=== PATIENT | female | born 2000 | race Caucasian/White ===

== ENCOUNTER → 2024-07-02 14:38 | Outpatient (BNVA) | payer SELFPAY | PROVIDERS: Visit Provider Physician Assistant | DX: Z02.79 Encounter for issue of other medical certificate (principal) ==

== ENCOUNTER 2025-07-22 09:20 | Outpatient (REF) | payer OTHER, SELFPAY ==
--- OUTSIDE RECORDS SUMMARY | 2025-07-22 10:25 | XMS_ITS | Clinical Summary ---
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 child wets his or her bed because of a urinary tract infection, diabetes, or constipation (all medical causes of bed-wetting), those problems need to be addressed first. In addition, hypnotherapy or RMI should be used by health care provider who is properly trained in its use, treating what the doctor is trained to diagnose and treat medically. Though hypnotherapy is used to treat patients with post traumatic stress disorder, for example, pediatricians are not trained to treat this problem, and should leave this treatment and the treatment of other severe psychiatric conditions to mental health professionals. In fact, pediatricians should ask about any emotional disorder or problem at school or in the home (like depression or abuse) before beginning hypnotherapy for a condition like headaches, where stress often plays a role. What kind of training should a hypnotherapist have? A hypnotherapist should be a health care provider with additional training, including supervision, at workshops like those offered by the Society for Behavioral and Developmental Pediatrics, and, ideally certification by an organization like the [place] [employer] Hypnosis. How much time does Hypnosis take? A hypnotherapeutic cure takes anywhere from one to a half dozen sessions, which are usually about a half hour, scheduled a week to a month apart. Of course, the most important part of the hypnotherapy or RMI is the PRACTICE which the child or teen must do on his or her own, once or twice a day. This practice must continue until the program is solved but can often be then applied to other problems like preparation and psyching for a soccer, basketball or hockey game. This is one of the advantages of hypnosis: It is a lifelong skill that can enhance self confidence, independence, and ability in a wide array of activities. If you would like additional information, I can refer you to excellent text books on the subject written by John Duarte and Edita Sanders, and a licensed clinical contact worker Aimee Rodriguez, as well as several articles I have written. ............Jona Torres MD [facility] Assessment & Plan (04/15/2020 2:18 PM EDT): Still getting migraines occasionally (2 this month, none last month), using sumatriptan with relief. Have not seen neuro again, aware to call him if any concerns. Assessment & Plan (11/16/2019 11:37 AM EST): Still no auras. Has neuro visit in November. Assessment & Plan (06/08/2019 4:23 PM EDT): Had a CLAROS yesterday with vomiting, and a little CLAROS today, took NSAID. Did take sumatriptan yesterday. Resolved Problems Problem Noted Date Diagnosed Date Resolved Date Uncomplicated asthma 02/17/2010 019 Immunizations Immunization Administration Dates Next Due DTaP 5 05/15/2006, 3,2002,08/06,2002 HPV Vaccine 9 Valent 12/09/2020,09/23/2015 HPV, Quadrivalent 10/13/2014,08/10/2014 Hep A, ped/adol 09/23/2015,10/13/2014 Hep B, ped/adol 02/18/2003,2002,2002 Hib (PRP-T) 07/15/2003, 2,2002,06/04 IPV 05/15/2006, 3,2002,06/04 Influenza Split 09/30/2012,08/10/2010 Influenza, injectable, quadrivalent 09/23/2015 Influenza, injectable, quadr ivalent, preservative free 08/23/2021,09/19/2020,08/10/2014 Influenza, injectable, trivalent 09/10/2007,08/25,10/06/2004 MMR 05/15/2006,04/05/2003 Meningococcal B Trumenba 09/19/2020,04/06/2019 Meningococcal Conj (Menactra) MCV4P 04/06/2019,0 08/10/2014 PPD Test 12/27/2020 Pneumococcal Conjugate 07/15/2003,2001,2002,06/04 Tdap 08/10/2014 Varicella 05/19/2008,04/05/2003 Family History Medical History Relation Name Comments Heart disease (Premature) Maternal Grandmother strokes Hypertension Maternal Grandmother Anxiety disorder Mother Cristy Aleman Depression Mother Cristy Aleman on Celexa Scoliosis Mother Cristy Aleman Polycystic ovary syndrome Mother's Sister Anxiety disorder Sister Juliane Estrella Depression Sister Juliane Estrella on sertralin e Relation Name Status Comments Cousin Cousin: Brain t umor Father Alive pat fam h/o: AD D/ADHD Maternal Grandmother Alive Materna l aunt: Hypertension Mother Cristy Aleman Alive Mother: Migra good, Asthma Mother's Sister Alive Other No family histo ry of Deafness, No family history of Obesity, No family history of Strabismus/amblyopia, No family history of ADD/ADHD, No family history of Autism, No family history of Seizure disorder, No family history of Sudden /NH under age 55, No family history of Developmental dislocation of hip, Family history of Migraines, No family history of Diabetes mellitus, No family history of Elevated cholesterol Sister Juliane Estrella Alive Sister: Asth ma Social History Tobacco Use Types Packs/Day Years Used Date Smoking Tobacco: Never Smokeless Tobacco: Never Tobacco Cessation:Counseling Given: Yes Comments:Never smoker Alcohol Use Standard Drinks/Week Comments Never 0 (1 standard drink = 0.6 oz pur e alcohol) Hunger/Food Answer Date Recorded In the last 12 months, did y ou or your family ever eat less than you felt you should because there wasn't enough money for food? No 06/27/2022 Stable Housing Answer Date Recorded Are you worried that in the next 2 months you may not have stable housing? No 06/27/2022 Transportation Concerns Answer Date Rec orded In the last 12 months, have you or your family ever had to go without healthcare because you didn't have a way to get there? No 06/27/2022 Hazards in Home Answer Date Recorded Think about the place you li ve. Do you have problems with any of the following? Pests (mice or roaches), mold, no/not working smoke detectors, water leaks, no window guards. No 2021 Financing Utilities Answer Date Recorde d In the last 12 months, has t he electric, gas, oil, or water company threatened to shut off your services in your home? No 06/27/2022 Safety at Home Answer Date Recorded Are you or your family worried about feeling saf e in your home? No 06/27/2022 Outside Support Answer Date Recorded Do you feel that you need mo re support from other people or programs to help you care for yourself or your family? No 06/27/2022 Understanding Health Concerns Answer Da te Recorded Do you need help understandi ng your or your child's healthcare needs (diagnosis, medications, plan, etc.)? No 06/27/2022 Financing Health Concerns Answer Date R ecorded In the last 12 months, was t here a time when your child needed to see a doctor or get medications or supplies but could not because of cost? No 06/27/2022 Missing School or Work Answer Date Anastacio rded Did you or your child miss s chool or work because of a health problem that could have been avoided? No 06/27/2022 Comments No Sex and Gender Information Value Date Recorded Sex Assigned at Female 04/15/2020 2:15 PM EDT Legal Sex Female 5:02 PM EDT Gender Identity Female 04/15/2020 2:15 PM EDT Sexual Orientation Straight 04/15/2020 2: 15 PM EDT Last Filed Vital Signs Vital Sign Reading Time Taken Comments Blood Pressure 132/95 08/06/2022 11:40 AM EDT Pulse 73 08/06/2022 11:40 AM EDT Temperature 36.9 C (98.5 F) 08/06/2022 11:40 AM EDT Respiratory Rate - - Oxygen Saturation - - Inhaled Oxygen Concentration - - Weight 117 kg (257 lb 3.2 oz) 08/06/2022 11:40 A M EDT Height 151.8 cm (4' 11.75 ) 06/28/2022 10:51 AM EDT Body Mass Index 50.65 06/28/2022 10:51 AM EDT Plan of Treatment Health Maintenance Due Date Last Done Comments COVID-19 Vaccine (2023-2 5 season) 2024 02/12/2022, 05/18/2021, 04/20/2021 Influenza Vaccines (#1) 2025 08/23/20, 09/19/2020, 09/23/2015, Additional history exists DTaP,Tdap,and Td Vaccines (8 - Td or Tdap) 05/01/2033 05/01/2023, 08/10/2014, 05/15/2006, Additional history exists Hepatitis B Vaccines Completed 02/18/2003, 2002, 2002 HIB Vaccines Completed 07/15/2003, 09/25, 2002, Additional history exists Pneumococcal Vaccine Completed 07/15/2003, 2002, 2002, Additional history exists IPV Vaccines Completed 05/15/2006, 01/24, 2002, Additional history exists MMR Vaccines Completed 05/15/2006, 04/05/2003 Varicella Vaccines Completed 05/19/2008, 04/05/2003 Hepatitis A Vaccines Completed 09/23/2015, 10/13/20 14 Meningococcal Vaccine Completed 04/06/2019, 014 Men B Vaccine Completed 09/19/2020, 04/06/2019 HPV Vaccines Completed 12/09/2020, 08/27, 10/13/2014, Additional history exists Procedures * Due to [facility] law, this organization might not be sharing sensitive test results. Procedure Name Priority Date/Time Associated Diagnosis Comments CHLAMYDIA AND GONORRHEA, AMPLIFIED Routine 06/28/2022 12:15 PM EDT Encounter for screening examination for chlamydial infection from Last 3 Months or Most Recently Relevant to Health Maintenance Results * Due to [place] [employer]ill[employer] law, this organization might not be sharing sensitive test results. * Chlamydia and Gonorrhoea, Amplified (Urine) (06/28/2022 12:15 PM EDT) Chlamydia Trachomatis, DNA Probe NEGATIVE (NEG) [facility] Comment: No Chlamydia Trachomatis RNA detected in this patient's sample (REFERENCE RANGE/NORMAL VALUE: NOT DETECTED) Note: This test uses marketing programs specialist- mediated amplification method to detect rRNA from C. Trachomatis URINE GC AMP PROBE NEGATIVE (NEG) [facility] Comment: No Neisseria Gonorrhoeae RNA detected in this patient's sample (REFERENCE RANGE/NORMAL VALUE: NOT DETECTED) NOTE: This test uses marketing programs specialist-mediated amplification method to detect rRNA from N.Gonorrhoeae. A negative result does not preclude infection. In the case of a negative urine result, testing of an endocervical(female) or urethral (male) specimen is recommended if there is high clinical suspicion of infection. Due to very high sensitivity of Nucleic Acid Amplification Test, false positive results may occur. Therefore, specimen handling is extremely important. In patients in whom the disease is unlikely, additional sample for testing should be considered after an initial positive result. The performance characteristics of this test have not been evaluated in children. The Aptima Combo2 assay is not intended for the evaluation of suspected sexual abuse or for other medico-legal indications. The ordering provider should assess if the patient had consensual sex without risk of sexual abuse. Consult the [facility] if needed. Contact phone number . Therapeutic failure or success cannot be determined with the Aptima Combo2 assay since nucleic acid may persist following appropriate antimicrobial therapy. The Centers for Disease Control and Prevention (CDC) recommends confirmatory retesting using culture or a different nucleic acid amplification test when positive results occur, if indicated. Testing performed or reported by [facility], a Service of [facility], [address], [place] [address] [place] Melo MD, Founder & Ceo [facility]# [id number] Urine (Urine, Random (not clean void)) 06/28/2022 12:15 PM EDT 06/28/2022 9:14 PM EDT Hannah Griffith MD LAB MICROBIOLOGY - GENERAL OR DERABLES Final Result [facility] from Last 3 Months or Most Recently Relevant to Health [place] [address] [facility] [place] [place] [address] [facility] NON PCC
--- OUTSIDE RECORDS SUMMARY | 2025-07-22 10:25 | XMS_ITS ---
Author Name [facility] Organization Unknown Care Team Organization Name Specialty Phone Email Start Date End Da te [facility] Amanda Johnson Primary [facility] 09/24/2023 07/13/2024
--- OUTSIDE RECORDS SUMMARY | 2025-07-22 10:26 | XMS_ITS | Encounter Summary ---
Author Organization [facility] Address [address] [place] [address] Phone Care Team Providers Care [employer] Employee Name Role Phone Hannah Griffith MD Primary Care Provider [phone] Reason for Visit * Reason Comments Med Refill Encounter Details Date Type Department Care Team (Late st Contact Info) Description 12/25/2020 Refill [facility] [address] [place] [address] Hannah Griffith MD [address] [place] [address] Anxiety and depression; Moderate episode of recurrent major depressive disorder Social History Tobacco Use Types Packs/Day Years Used Date Smoking Tobacco: Never Smokeless Tobacco: Never Comments:Never smoker Alcohol Use Standard Drinks/Week Comments Never 0 (1 standard drink = 0.6 oz pur e alcohol) Hunger/Food Answer Date Recorded In the last 12 months, did y ou or your family ever eat less than you felt you should because there wasn't enough money for food? No 04/14/2020 Stable Housing Answer Date Recorded Are you worried that in the next 2 months you may not have stable housing? No 04/14/2020 Transportation Concerns Answer Date Rec orded In the last 12 months, have you or your family ever had to go without healthcare because you didn't have a way to get there? No 04/14/2020 Hazards in Home Answer Date Recorded Think about the place you li ve. Do you have problems with any of the following? Pests (mice or roaches), mold, no/not working smoke detectors, water leaks, no window guards. No 2019 Financing Utilities Answer Date Recorde d In the last 12 months, has t he electric, gas, oil, or water company threatened to shut off your services in your home? No 04/14/2020 Safety at Home Answer Date Recorded Are you or your family worried about feeling saf e in your home? No 04/14/2020 Outside Support Answer Date Recorded Do you feel that you need mo re support from other people or programs to help you care for yourself or your family? No 04/14/2020 Understanding Health Concerns Answer Da te Recorded Do you need help understandi ng your or your child's healthcare needs (diagnosis, medications, plan, etc.)? No 04/14/2020 Financing Health Concerns Answer Date R ecorded In the last 12 months, was t here a time when your child needed to see a doctor or get medications or supplies but could not because of cost? No 04/14/2020 Missing School or Work Answer Date Anastacio rded Did you or your child miss s chool or work because of a health problem that could have been avoided? No 04/14/2020 Comments No Sex and Gender Information Value Date Recorded Sex Assigned at Female 04/15/2020 2:15 PM EDT Legal Sex Female 5:02 PM EDT Gender Identity Female 04/15/2020 2:15 PM EDT Sexual Orientation Straight 04/15/2020 2: 15 PM EDT documented as of this encounter Miscellaneous Notes * Telephone Encounter - Hannah Griffith MD - 12/26/2020 11:28 AM EST Rx done. Can you please call to schedule her PE in March? * Telephone Encounter - Lolly Esqueda MA - 12/25/2020 8:37 AM EST Med check apt pending for January. Will need a PE in March Refill Sertraline documented in this encounter Plan of Treatment Not on file documented as of this encounter Visit Diagnoses Diagnosis Anxiety and depression Moderate episode of recurrent major depressive disorder documented in this encounter Care Teams [employer] Employee Relationship Specialty Start Date End Date Hannah Griffith MD [address] [place] [address] PCP - General Pediatrics 04/06/19 05/14/23 documented as of this encounter
--- OUTSIDE RECORDS SUMMARY | 2025-07-22 10:26 | XMS_ITS | Encounter Summary ---
Author Organization [facility] Address [address] [place] [phone] Phone Care Team Providers Care Materials Tech Name Role Phone Hannah Griffith MD Primary Care Provider [phone] Encounter Details Date Type Department Care Team (Late st Contact Info) Description 07/11/2017 Conversion Encounter [facility] [address] [place] [address] Social History Tobacco Use Types Packs/Day Years Used Date Smoking Tobacco: Never Comments:Never smoker Comments Unknown Sex and Gender Information Value Date Recorded Sex Assigned at Female 04/15/2020 2:15 PM EDT Legal Sex Female 5:02 PM EDT Gender Identity Female 04/15/2020 2:15 PM EDT Sexual Orientation Straight 04/15/2020 2: 15 PM EDT documented as of this encounter Plan of Treatment Not on file documented as of this encounter Visit Diagnoses Not on filedocumented in this encounter Care Teams Materials Tech Relationship Specialty Start Date End Date Hannah Griffith MD [address] [place] [address] PCP - General Pediatrics 04/06/19 05/14/23 documented as of this encounter
--- OUTSIDE RECORDS SUMMARY | 2025-07-22 10:26 | XMS_ITS | Clinical Summary ---
Author Organization [employer] Address [address] [facility] [address] [place] [address] Care Team Providers Care Experimental Outboard Motors Mechanic Name Role Phone Renetta Matos DO Primary Care Provider [phone] Allergies No known active allergies Medications * This document contains information received from the source organization and may not represent a complete record from that organization. sertraline (Zoloft) 25 MG tablet Take 25 mg by mouth Once per day. Active sertraline (Zoloft) 25 MG tabletIndicatio ns:Anxiety Take 1 tablet (25 mg) by mouth Once per day. 30 tablet 2 5 07/12/20 26 Active hydrOXYzine pamoate (Vistaril) 25 MG capsuleIndicati ons:Anxiety Take 1 capsule (25 mg) by mouth every 6 (six) hours if needed for anxiety. 40 capsule 1 5 Active cetirizine (ZyrTEC) 10 MG tablet Take 1 tablet (10 mg) by mouth Once per day. 30 tablet 11 5 07/14/20 26 Active mometasone (Nasonex) 50 MCG/ACT nasal spray Administer 2 sprays into each nostril Once per day. 17 g 11 5 07/14/20 26 Active metFORMIN XR (Glucophage-XR) 500 MG 24 hr tablet Take 1 tablet (500 mg) by mouth with evening meal. Do not crush, chew, or split. 30 tablet 11 5 07/14/20 26 Active Active Problems Problem Noted Date Diagnosed Date Grief 07/09/2025 BMI 50.0-59.9, adult 07/07/2025 Anxiety 07/07/2025 Fatty liver 07/03/2022 Overview (07/07/2025): Mildly elevated transaminase 04/12, 06/12, 09/13. Liver [...] disease, she should be referred to the [facility] Program, and I can monitor her liver enzymes 1- 2x/year and ultrasound annually. * referred to [facility] Weight Mgmt program 07/03/22 History of COVID-19 12/15/2021 Overview (07/07/2025): Started with symptoms 12/08/21- mild symptoms. Prediabetes 04/03/2021 Overview (07/07/2025): 03/31/21, hgb a1c = 6. -> referred to endo 06/28/21, hgb a1c = 6.1 -> referred again to endo as never seen * referred to [facility] Weight Mgmt program 07/03/22 PCOS (polycystic ovarian syndrome) 12/09/2020 Overview (07/07/2025): No hirsutism. Does have some acne. Labs c/w PCOS (elevated free testosterone). Nl 17-OH-P. OCPs started 06/12. Seen by 12/09/[address] Chance, OB-Postal Mail Carrier, agree with COCs. Vitamin D deficiency 09/23/2020 Overview (07/07/2025): 09/13 vitamin D level 15.8. Ordered vitamin D 2000IU/day, repeat 12/27/20 level was 15.9, dose increased to 4000IU/day, repeat 03/31/21 17.6. 25 OH vit D = 12.5 on 06/28/22 (not taking vitamin D). Vitamin D 4000IU/day prescribed, to recheck level in 2 months, but also referred to endo. Major depression, recurrent, chronic 03/21/2020 Overview (07/07/2025): Diagnosed 03/16/20 by [facility], Dr. Zoye Mariano, and seen ~10x, last visit 07/11/20. Chronic migraine 02/17/2010 Overview (07/07/2025): Since 5yo. Per mom, MRI normal in past. Has used cyproheptadine in the past, but gained weight. Gets 3-4x/week. Sleeps them off. [facility] Neuro (Dr. Jhonny Oshea) 05/14/19- started sumatriptan 25mg prn, f/u 3 mos. 01/16- worsening migraines after Covid 12/16, sumatriptan re-started, MigRelief started and improved on this. Encounters * This document contains information received from the source organization and may not represent a complete record from that organization. Date Type Department Care Team Description 07/09/2025 9:30 AM EDT Office Visit [address] [address] Renetta Matos DO Routine history and physical examination of adult (Primary Dx); Major depression, recurrent, chronic (CMS/HCC); Prediabetes; Fatty liver; BMI 50.0-59.9, adult (CMS/HCC); Dietary counseling; Exercise counseling 07/09/[address] [address] Renetta Matos DO Anxiety 07/09/2025 Travel 07/08/[address] [address] Renetta Matos DO chart prep 07/02/2025 Travel 06/30/2025 Patient Outreach [address] [address] Renetta Matos DO Pre-visit Planning (SDOH screening negative and tobacco screening negative) 05/06/[address] [address] Ed Kevin MD New Patient from Last 3 Months Immunizations Immunization Administration Dates Next Due DTaP, 5 pertussis antigens 05/15/2006,,2002,08/06,2002 HPV 9-Valent 12/09/2020,09/23/2015 HPV, Quadrivalent 09/23/2015,10/13/2014,08/10/20 14 Hep A, Unspecified 09/23/2015 Hep A, ped/adol, 2 dose 09/23/2015,10/13/2014 Hep B, Adolescent or Pediatric 02/18/2003,2001,2002 Hib (PRP-T) 07/15/2003, 2,2002,06/04 IPV 05/15/2006, 3,2002,06/04 Influenza injectable quadriv alent IIV4 with preservative 09/23/2015 Influenza injectable quadriv alent preservative free 08/23/2021,09/19/2020,08/10/2014 Influenza, IIV3, injectable 08/23/2021,1 ,09/23/2015,09/10,09/04/2005,10/06/2004 Influenza, Split (incl. cyndee fied surface antigen) 09/30/2012,08/10/2010 MMR 05/15/2006,04/05/2003 Meningococcal ACWY, unspecified 04/06/2019 Meningococcal B, Recombinant 09/19/2020,04/06/20 19 Meningococcal MCV4P ACYW-135 04/06/2019,08/10/20 14 PPD Test 12/27/2020 Pneumococcal Conjugate PCV 7 07/15/2003, 2002,2002,06/04 Rabies Immune Globulin 05/01/2023 Rabies, IM Diploid Cell Culture 05/15/20 23,05/08/2023,05/04/2023,05/01 Tdap 05/01/2023,08/10/2014 Varicella 05/19/2008,04/05/2003 Social History Tobacco Use Types Packs/Day Years Used Date Smoking Tobacco: Never Smokeless Tobacco: Never Tobacco Cessation:Counseling Given: Not Answered Alcohol Use Standard Drinks/Week Comments Never 0 (1 standard drink = 0.6 oz pur e alcohol) Depression Answer Date Recorded Patient Health Questionnaire-9 Score 21 07/09/2025 Patient Health Questionnaire-9 Score 21 07/09/2025 Last PHQ-9: Questionnaire Data Not on file 0 07/09/2025 Housing Stability Answer Date Recorded What is your housing situation today? I have arnaldo bradley 06/30/[address] you li ve. Do you have problems with any of the following? None of the above 06/30/2025 Food Insecurity Answer Date Recorded Within the past 12 months, y ou worried that your food would run out before you got money to buy more: Never True 06/30/2025 Within the past 12 months,th e food you bought just didn't last and you didn't have enough money to get more: Never True 04/2025 Transportation Answer Date Recorded In the past 12 months, has l ack of transportation kept you from medical appts, meetings, work or from getting things needed for daily living? No 06/30/2025 Utilities Answer Date Recorded In the past 12 months, has t he electric, gas, oil or water company threatened to shut off services in your home? No 06/30/2025 Depression Answer Date Recorded Patient Health Questionnaire-2 Score 5 07/09/2025 Internet Access Answer Date Recorded Internet Access Q1 Yes 06/30/2025 Internet Access Q2 Not on file 06/30/2025 Comments No Sex and Gender Information Value Date Recorded Sex Assigned at Unknown 07/07/2025 8:54 AM EDT Legal Sex Female 8:38 AM EDT Gender Identity Choose not to disclose 8:54 AM EDT Sexual Orientation Don't know 07/07/2025 8: 54 AM EDT Last Filed Vital Signs Vital Sign Reading Time Taken Comments Blood Pressure 128/70 07/09/2025 9:57 AM EDT Pulse 100 07/09/2025 9:57 AM EDT Temperature 36.8 C (98.3 F) 07/09/2025 9:57 AM EDT Respiratory Rate 20 07/09/2025 9:57 AM EDT Oxygen Saturation 95% 07/09/2025 9:57 AM EDT Inhaled Oxygen Concentration - - Weight 133 kg (294 lb 4 oz) 07/09/2025 9:57 AM E DT Height 149.9 cm (4' 11 ) 07/09/2025 9:57 AM EDT Body Mass Index 59.43 07/09/2025 9:57 AM EDT Plan of Treatment Upcoming Encounters Date Type Department Care Team (Late st Contact Info) Description 08/17/2025 10:00 AM EDT Office Visit [facility] MED[facility] [address] [place] [address] Renetta Matos DO [address] [place] [address] Health Maintenance Due Date Last Done Comments Diabetes: Hemoglobin A1C 2002 HIV Screening 2002 Lipid Panel 2002 Family Planning (PISQ) 2017 Hepatitis C Screening 2020 Pap Smear 2023 Chlamydia and Gonorrhea Screening 06/28/2023 06/28/2022, 04/06/2019 COVID-19 Vaccine ( season) 2024 05/18/2021, 04/20/2021 Influenza Vaccine (#1) 2025 , 08/23/2021, 09/19/2020, Additional history exists Depression Monitoring 01/09/2026 07/09/2025, 025 SDOH Screening 06/30/2026 06/30/2025 Disability Screening 07/02/2026 07/02/2025 Alcohol/Substance Use Screening 07/09/2026 07/09/2025 Tobacco Screening 07/09/2026 07/09/2025 DTaP/Tdap/Td Vaccines (8 - Td or Tdap) 05/01/2033 05/01/2023, 08/10/2014, 05/15/2006, Additional history exists Zoster Vaccines (1 of 2) 2052 RSV Patients and Patients Aged 60 years or older (1 - 1-dose 75+ series) 2077 Hepatitis B Vaccines Completed 02/18/2003, 2002, 2002 HIB Vaccines Completed 07/15/2003, 09/25, 2002, Additional history exists Pneumococcal Vaccine: Pediatrics (0 to 5 Years) and At-Risk Patients (6 to 49) Years Aged Out 07/15/2003, 2002, 2002, Additional history exists No longer eligible based on patient's age to complete this topic IPV Vaccines Completed 05/15/2006, 01/24, 2002, Additional history exists Hepatitis A Vaccines Completed 09/23/2015, 09/23/2015, 10/13/2014 Meningococcal Vaccine Completed 04/06/2019 , 04/06/2019, 08/10/2014 Meningococcal B Vaccine Completed 09/19/2020, 04/06 HPV Vaccines Completed 12/09/2020, 08/27, 09/23/2015, Additional history exists RSV under 20 months Aged Out No longe r eligible based on patient's age to complete this topic Rotavirus Vaccines Aged Out No longer eligible based on patient's age to complete this topic Insurance [facility] Care Teams Experimental Outboard Motors Mechanic Relationship Specialty Start Date End Date Renetta Matos DO [address] [place] [address] PCP - General Family Medicine 07/12/25
--- OUTSIDE RECORDS SUMMARY | 2025-07-22 10:26 | XMS_ITS | Clinical Summary ---
Author Organization [facility] Address [address] [place] [phone] Phone Care Team Providers Care Tomahawk Weapon [employer] Operator Name Role Phone Jaleesa Ghosh MD Primary Care Pr ovider Allergies No known active allergies Medications No known medications Active Problems No known active problems Surgical History Surgery Date Site/Laterality Comments OTHER SURGICAL HISTORY PROCEDURE: DENIES PREVIOUS SURGERY Medical History Medical History Date Comments Obesity DX:Obesity PCOS (polycystic ovarian syndrome) DX:PCOS (polycystic ovarian syndrome) Depression DX:Depression Family History Medical History Relation Name Comments Breast cancer Neg Hx Colon cancer Neg Hx Social History Tobacco Use Types Packs/Day Years Used Date Smoking Tobacco: Never Smokeless Tobacco: Never Alcohol Use Standard Drinks/Week Comments No 0 (1 standard drink = 0.6 oz pur e alcohol) Comments Unknown Sex and Gender Information Value Date Recorded Sex Assigned at Not on file Legal Sex Female 4:31 AM EST Gender Identity Not on file Sexual Orientation Not on file Obstetrics History Last Filed Vital Signs Vital Sign Reading Time Taken Comments Blood Pressure 122/70 01/05/2025 5:44 PM EST Pulse 95 01/05/2025 5:44 PM EST Temperature 37.3 C (99.1 F) 01/05/2025 5:44 PM EST Respiratory Rate 18 01/05/2025 5:44 PM EST Oxygen Saturation 100% 01/05/2025 5:44 PM EST Inhaled Oxygen Concentration - - Weight 122 kg (268 lb) 01/05/2025 2:07 PM EST Height 152.4 cm (5') 01/05/2025 2:07 PM EST Body Mass Index 52.34 01/05/2025 2:07 PM EST Plan of Treatment Health Maintenance Due Date Last Done Comments Gonorrhea/Chlamydia Screening 2002 Cervical Cancer Screening: Pap Smear 2023 COVID-19 Vaccine ( season) 2024 DTaP,Tdap,and Td Vaccines (7 - Td or Tdap) 08/10/2024 08/10/2014, 05/15/2006, 07/15/2003, Additional history exists Depression Screening 11/25/2024 HIV Screening 01/06/2025 Hepatitis C Screening 01/06/2025 Social Influencers of Health Screening 01/06/2025 Influenza Vaccine (#1) 2025 , 09/19/2020, 09/23/2015, Additional history exists Hepatitis B Vaccines Completed 02/18/2003, 2002, 2002 HIB Vaccines Completed 07/15/2003, 09/25, 2002, Additional history exists Pneumococcal Vaccine: Pediatrics (0 to 5 Years) and At-Risk Patients (6 to 49 Years) Completed 07/15/2003, 2002, 2002, Additional history exists IPV Vaccines Completed 05/15/2006, 01/24, 2002, Additional history exists MMR Vaccines Completed 05/15/2006, 04/05/2003 Varicella Vaccines Completed 05/19/2008, 04/05/2003 Hepatitis A Vaccines Completed 09/23/2015, 10/13/20 14 Meningococcal ACWY Vaccine Completed 04/06/2019, Meningococcal B Vaccine Completed 09/19/2020, 04/06 HPV Vaccines Completed 12/09/2020, 08/27, 10/13/2014, Additional history exists RSV Immunization Patients Under 20 months Aged Out No longer eligible based on patient's age to complete this topic Insurance [facility] Care Teams Tomahawk Weapon System Operator Relationship Specialty Start Date End Date Jaleesa Ghosh MD PCP - General 08/14/23
[2025-07-22 14:59] LABS: Hematocrit 43.9 % (37.0-47.0); Hemoglobin 13.9 g/dl (12.0-16.0); Mean Corpuscular HGB Conc 31.7 g/dl (31.0-35.0); Mean Corpuscular Hemoglobin 27.0 pg (27.0-33.0); Mean Corpuscular Volume 85.2 fL (80.0-98.0); NRBC Abs Auto 0.000 X10*3/uL (0.0-0.012); NRBC Pct Auto 0.0 /100WBC (0.0-0.2); Platelet Count 443 X10*3/uL (160-400); Red Blood Count 5.15 X10*6/uL (4.20-5.50); White Blood Count 10.9 X10*3/uL (4.8-10.8)
[2025-07-22 15:04] LABS: Hemoglobin A1C 166.5834 umol/L; Total Hemoglobin (HGBA1C) 3650.9192 umol/L
[2025-07-22 16:03] LABS: Alanine Aminotransferase 46 U/L (0-31); Albumin Level 4.2 g/dL (3.5-5.0); Alkaline Phosphatase 78 U/L (39-117); Anion Gap 12 (12-20); Aspartate Amino Transferase 38 U/L (5-31); Blood Urea Nitrogen 11 mg/dL (9-16); Calcium 9.3 mg/dL (8.4-10.2); Carbon Dioxide 26 mmol/L (22-29); Chloride 104 mmol/L (96-108); Cholesterol 163 mg/dL (<200); Estimated Glomerular Filt Rate > 60; HDL Cholesterol 45 mg/dL (>40); Potassium 4.2 mmol/L (3.3-5.1); Sodium 138 mmol/L (135-145); Total Protein 7.8 g/dL (6.5-8.0); Triglycerides 94 mg/dL (<150)
[2025-07-22 16:07] LABS: Free T4 (Free Thyroxine) 1.05 ng/dL (0.71-1.85); Thyroid Stimulating Hormone 1.06 uIU/mL (0.32-4.0)
[2025-07-23 03:48] LABS: HBc Num1 0.20 S/CO (0.00-0.79); HIV Num 1 0.10 S/CO (0.00-0.99); ~HepC Num1 0.10 S/CO (0.00-0.79); ~Hepatitis C Antibody Nonreactive (Nonreactive)
[2025-07-23 03:50] LABS: HBS Num1 1.49 mIU/mL (0-7.99); HBsAGNum1 0.38 S/CO (0.00-0.99); Hepatitis B Surface Antigen Negative (Negative); ~Hepatitis B Surface Antibody NONREACTIVE (Nonreactive)
[2025-07-23 04:05] LABS: ~Hepatitis A Antibody IgG 2.97 S/CO (0.00-0.99)
[2025-07-23 08:32] LABS: Rubeola IgG (Measles) 63.90 AU/mL
[2025-07-25 12:05] LABS: TS Negative Control Passed; TS Panel A 0; TS Panel B 0; TS Positive Control Passed; TSpotTB Negative (Negative)
== END 2025-07-22 09:21 | disposition home or self-care (01) ==
LOC: HO.CHCLDS 09:20
PROVIDERS: Visit Provider Family Medicine
DX: Z00.00 Encounter for general adult medical examination without abnormal findings (principal); Z11.1 Encounter for screening for respiratory tuberculosis; Z11.59 Encounter for screening for other viral diseases; Z11.4 Encounter for screening for human immunodeficiency virus [HIV]; F33.9 Major depressive disorder, recurrent, unspecified; R73.03 Prediabetes; K76.0 Fatty (change of) liver, not elsewhere classified; Z68.43 Body mass index [BMI] 50.0-59.9, adult; Z71.3 Dietary counseling and surveillance; Z71.82 Exercise counseling
CPT/HCPCS: 36415; 80048; 80061; 80076; 82105; 82306; 83036; 84439; 84443; 85027; 86481; 86592; 86704; 86706; 86708; 86735; 86762; 86765; 86787; 86803; 87340; 87389

== ENCOUNTER → 2025-07-30 09:58 | Outpatient (BNVA) | payer SELFPAY | PROVIDERS: Visit Provider Physician Assistant | DX: Z02.79 Encounter for issue of other medical certificate (principal) ==

== ENCOUNTER 2025-08-17 17:24 | Outpatient (REF) | payer OTHER, SELFPAY ==
--- OUTSIDE RECORDS SUMMARY | 2025-08-17 10:00 | XMS_ITS | Encounter Summary ---
Author Organization [employer] Address [address] [place] [address] Care Team Providers Care Catcher Helper Name Role Phone Renetta Matos DO Primary Care Provider Reason for Visit * Reason Comments Follow-up Encounter Details Date Type Department Care Team (Late st Contact Info) Description 08/17/2025 10:00 AM EDT Office Visit [facility] MEDICINE [address] [place], [place] [phone] Renetta Matos DO [address] [place] [address] Acute URI; Sore throat Social History Tobacco Use Types Packs/Day Years Used Date Smoking Tobacco: Never Smokeless Tobacco: Never Alcohol Use Standard Drinks/Week Comments Never 0 [...] Don't know 07/07/2025 8: 54 AM EDT documented as of this encounter Last Filed Vital Signs Vital Sign Reading Time Taken Comments Blood Pressure 144/88 08/17/2025 10:42 AM EDT Pulse 100 08/17/2025 9:54 AM EDT Temperature 36.6 C (97.8 F) 08/17/2025 9:54 AM EDT Respiratory Rate 20 08/17/2025 9:54 AM EDT Oxygen Saturation 97% 08/17/2025 9:54 AM EDT Inhaled Oxygen Concentration - - Weight 135 kg (298 lb) 08/17/2025 9:54 AM EDT Height 149.9 cm (4' 11 ) 08/17/2025 9:54 AM EDT Body Mass Index 60.19 08/17/2025 9:54 AM EDT documented in this encounter Plan of Treatment Scheduled Orders Name Type Priority Associated Diagnoses Orde r Schedule Culture, Throat Microbiology Routine Sore throat Ordered: 08/17/2025 documented as of this encounter Procedures Procedure Name Priority Date/Time Associated Diagnosis Comments POC CROCKETT ID NOW STREP A Routine 08/17/2025 10:53 AM EDT Sore throat POCT INFLUENZA B Routine 08/17/2025 10:2 3 AM EDT Acute URI POCT INFLUENZA A Routine 08/17/2025 10:2 3 AM EDT Acute URI documented in this encounter Results * POCT Rapid Strep A CROCKETT ID NOW (08/17/2025 10:53 AM EDT) Rapid Strep A Screen Negative Negative, None Detected Swab 08/17/2025 10:5 3 AM EDT Renetta Matos DO POINT OF CARE TEST ENTER/TOMER T ORDERABLES Final Result * POCT Rapid Influenza A OSOM (08/17/2025 10:23 AM EDT) Rapid Influenza A Ag Negative Negative, Indeterminate Swab Nasopharyngeal structure / Unknown 08/17/2025 10:23 AM EDT Renetta Matos DO POINT OF CARE TEST ENTER/TOMER T ORDERABLES Final Result * POCT Rapid Influenza B OSOM (08/17/2025 10:23 AM EDT) Rapid Influenza B Ag Negative Negative, Indeterminate Swab 08/17/2025 10:2 3 AM EDT Renetta Matos DO POINT OF CARE TEST ENTER/TOMER T ORDERABLES Final Result documented in this encounter Visit Diagnoses Diagnosis Acute URI Acute upper respiratory infections of unspecified site Sore throat Acute pharyngitis documented in this encounter Additional Health Concerns Assessment Noted Time PHQ-9 Depression Total Score: 21 0815/2 025 10:01 AM EDT documented as of this encounter Care Teams Catcher Helper Relationship Specialty Start Date End Date Renetta Matos DO [address] [place] [phone] PCP - General Family Medicine 07/12/25 documented as of this encounter
--- OUTSIDE RECORDS SUMMARY | 2025-08-17 18:49 | XMS_ITS | Clinical Summary ---
Author Organization [facility] Address [address] [place] [phone] Phone Care Team Providers Care Loan Reviewer Name Role Phone Unavailable Primary Care Provider [...] disease, she should be referred to the [facility] Weight Management Program, and I can monitor her liver enzymes 1- 2x/year and ultrasound annually. * referred to [facility] Weight Mgmt program 07/03/22 History of COVID-19 12/15/2021 Overview (12/15/2021): Started with symptoms 12/08/21- mild symptoms. Elevated hemoglobin A1c 04/03/2021 Overview (07/03/2022): 03/31/21, hgb a1c = 6. -> referred to endo 06/28/21, hgb a1c = 6.1 -> referred again to endo as never seen * referred to [facility] Weight Mgmt program 07/03/22 Assessment & [...] 06/12. Seen by 12/09/[address] Chance, OB-Lumber Sorter, agree with COCs. Assessment & Plan (06/28/2022 [...] depression 04/06/2019 Overview (06/13/2021): Seen by co-located [facility] therapist, Mavis, 05/13- lots of trauma. Seen again by [facility], Dr. Zoey Mariano, 03/14 for depressive [...] but she is aware she can call [facility] at any point if she'd like. F/u [...] back with DIVYA Carballo, but I discussed ocean transportation intermediary therapy today and Community resource list given [...] No access to guns. Referral to in-house [facility] therapist. F/u with me in [...] with OCPs for contraception. Has appt with food expeditor per mom's recs, planned for 12/15. I discussed contraception with her today (discussed options), and that she should discuss this with her new food expeditor. Periods are regular, monthly, not too heavy. [...] Started seeing Dr. Philip, antoine surgery @ [facility] 07/05/22 re possible bariatric surgery. * referred to [facility] Weight Mgmt program 07/03/22 Assessment & Plan (06/28/2022 12:54 PM EDT): Rapid weight gain despite better diet and exercise. Will check labs today and also re-refer to endo as she never went when referred a year ago. Assessment & Plan (12/15/2021 2:46 PM EST): Because of high risk, called [facility] monoclonal antibody center, is eligible for treatment. Called back patient, not available, so called mother and discussed. Patient is sleeping. Mom will let her know. They will contact patient for infusion. Assessment & Plan (10/06/2021 8:48 AM EST): She reports eating healthier, getting some exercise (though not daily). She is taking a nutrition class at [facility], which may help in terms of awareness [...] gained weight. Gets 3-4x/week. Sleeps them off. [facility] Neuro (Dr. Jhonny Oshea) 05/14/19- started [...] AM EDT): See me for a consult. [facility], [facility] [phone] [place] [id number] Date: HYPNOTHERAPY IN PEDIATRICS What is Hypnotherapy? Hypnosis is a state of increased focus in which a person experiences increased susceptibility to suggestion through hypnosis comes from the [place]ian word for sleep . A person is [...] hypnotherapist is like a teacher or a financial coach, teaching a skill that a child [...] RMI, diaphragmatic breathing is suggested by the [place] [employer] and others, as a way [...] Pediatric dentists; the past president of the [place] [employer] Clinical Hypnosis was a dentist. [...] ideally certification by an organization like the [place] Society for Clinical Hypnosis. How much time [...] and Edita Sanders, and a licensed clinical social and political studies professor Aimee Rodriguez, as well as several articles I have written. ............Jona Torres MD [facility] Assessment & Plan (04/15/2020 2:18 PM EDT): [...] Seizure disorder, No family history of Sudden /[place] under age 55, No family history of [...] Health Maintenance Due Date Last Done Comments Influenza Vaccines (#1) 2025 08/23/20, 09/19/2020, 09/23/2015, Additional history exists COVID-19 Vaccine ( - 2024-2 6 season) 2025 02/12/2022, 05/18/2021, 04/20/2021 DTaP,Tdap,and Td Vaccines (8 - Td or [...] Additional history exists Procedures * Due to [facility] law, this organization might not be sharing sensitive test results. Procedure Name Priority Date/Time Associated Diagnosis Comments CHLAMYDIA AND GONORRHEA, AMPLIFIED Routine 06/28/2022 12:15 PM EDT Encounter for screening examination for chlamydial infection from Last 3 Months or Most Recently Relevant to Health Maintenance Results * Due to [employer] law, this organization might not be sharing sensitive test results. * Chlamydia and Gonorrhoea, Amplified (Urine) (06/28/2022 12:15 PM EDT) Chlamydia Trachomatis, DNA Probe NEGATIVE (NEG) [facility] Comment: No Chlamydia Trachomatis RNA detected in this patient's sample (REFERENCE RANGE/NORMAL VALUE: NOT DETECTED) Note: This test uses manager demand- mediated amplification method to detect rRNA from C. Trachomatis URINE GC AMP PROBE NEGATIVE (NEG) [facility] Comment: No Neisseria Gonorrhoeae RNA detected in this patient's sample (REFERENCE RANGE/NORMAL VALUE: NOT DETECTED) NOTE: This test uses manager demand-mediated amplification method to detect rRNA from N.Gonorrhoeae. [...] risk of sexual abuse. Consult the [facility] if needed. Contact phone number . Therapeutic failure or success cannot be determined with the Aptima Combo2 assay since nucleic acid may persist following appropriate antimicrobial therapy. The Centers for Disease Control and Prevention (CDC) recommends confirmatory retesting using culture or a different nucleic acid amplification test when positive results occur, if indicated. Testing performed or reported by [facility], a Service of [facility], [address], [place] [address] [place] Melo MD, Employment Office Clerk [facility]# [id number] Urine (Urine, Random (not clean void)) 06/28/2022 12:15 PM EDT 06/28/2022 9:14 PM EDT Hannah Griffith MD LAB MICROBIOLOGY - GENERAL OR DERABLES Final Result [facility] from Last 3 Months or Most Recently Relevant to Health [place] [address] [facility] [place] [address] [facility] NON PCC
--- OUTSIDE RECORDS SUMMARY | 2025-08-17 18:50 | XMS_ITS | Encounter Summary ---
Author Organization [employer] Address [address] [facility] [address] [place] [address] Care Team Providers Care Dispatcher Relay Name Role Phone Renetta Matos DO Primary Care Provider Reason for Visit * Reason Onset Date Comments Chart Prep 08/16/2025 Encounter Details Date Type Department Care Team (Late st Contact Info) Description 08/16/2025 Telephone [facility] MEDICINE [address] [place], [place] [phone] Renetta Matos DO [address] [place], [place] [phone] Chart Prep Social History Tobacco Use Types Packs/Day Years [...] AM EDT documented as of this encounter Miscellaneous Notes * Telephone Encounter - Kaur Jaimes [place] - 08/16/2025 10:32 AM EDT Chart Prep Labs: done Images: not applicable Referrals: not applicable Vaccines due: Covid and Flu Screenings: pap smear, STI screening, and LMP Overdue care gaps: Disability screen documented in this encounter Plan of Treatment Not on file documented as of this encounter Visit Diagnoses Not on filedocumented in this encounter Additional Health Concerns Assessment Noted Time PHQ-9 Depression Total Score: 21 025 10:01 AM EDT documented as of this encounter Care Teams Dispatcher Relay Relationship Specialty Start Date End Date Renetta Matos DO [address] [place] [address] PCP - General Family Medicine 07/12/25 documented as of this encounter
--- OUTSIDE RECORDS SUMMARY | 2025-08-17 18:50 | XMS_ITS | Encounter Summary ---
Author Organization [employer] Address [address] [place] [address] Care Team Providers Care Electromagnet Crane Operator Name Role Phone WesRenetta martin Primary Care Provider [phone] Encounter Details Date Type Department Care Team (Latest Contact Info) Description 08/15/2025 Travel Social History Tobacco Use Types Packs/Day Years [...] AM EDT documented as of this encounter Plan of Treatment Not on file documented as of this encounter Visit Diagnoses Not on filedocumented in this encounter Additional Health Concerns Assessment Noted Time PHQ-9 Depression Total Score: 21 025 10:01 AM EDT documented as of this encounter Care Teams Electromagnet Crane Operator Relationship Specialty Start Date End Date Renetta Matos DO [address] [place] [id number] PCP - General Family Medicine 07/12/25 documented as of this encounter
--- OUTSIDE RECORDS SUMMARY | 2025-08-17 18:50 | XMS_ITS | Clinical Summary ---
Author Organization [employer] Address [address] [facility] [address] [place] [address] Care Team Providers Care Ic Design Manager Name Role Phone Renetta Matos DO Primary Care Provider Allergies No known active allergies Medications * This document contains information received from the source organization and may not represent a complete record from that organization. sertraline (Zoloft) 25 MG tabletIndicati ons:Anxiety Take 1 tablet (25 mg) by mouth Once per day. 30 tablet 2 07/12/20 25 Active hydrOXYzine pamoate (Vistaril) 25 MG capsuleIndicat ions:Anxiety Take 1 capsule (25 mg) by mouth every 6 (six) hours if needed for anxiety. 40 capsule 1 07/12/20 25 Active cetirizine (ZyrTEC) 10 MG tablet Take 1 tablet (10 mg) by mouth Once per day. 30 tablet 11 07/14/20 25 Active mometasone (Nasonex) 50 MCG/ACT nasal spray Administer 2 sprays into each nostril Once per day. 17 g 07/14/20 25 Active metFORMIN XR (Glucophage-XR ) 500 MG 24 hr tablet Take 1 tablet (500 mg) by mouth with evening meal. Do not crush, chew, or split. 30 tablet 11 07/14/20 25 026 Active Blood Pressure kit 1 each 1 (one) time per week. 1 kit 08/17/20 25 Active albuterol 108 (90 Base) MCG/ACT inhaler Inhale 2 puffs every 4 (four) hours if needed for wheezing or shortness of breath. 18 g 08/17/20 25 026 Active Spacer/Aero-Ho lding Chambers (AeroChamber MV) inhaler Use as instructed with albuterol MDI 1 each 08/17/20 25 Active pseudoephedrin e (Sudafed) 30 MG tablet Take 1 tablet (30 mg) by mouth every 6 (six) hours if needed for congestion for up to 10 days. 20 tablet 08/17/20 25 Active sodium chloride ([place] Nasal [place]) 0.65 % nasal spray Administer 2 sprays into each nostril if needed for congestion. 30 mL 3 08/17/20 25 Active benzonatate (Tessalon Perles) 100 MG capsule Take 1 capsule (100 mg) by mouth if needed in the morning, at noon, and at bedtime for cough for up to 10 days. Do not crush or chew. 30 capsule 08/17/20 25 Active acetaminophen (Tylenol 8 Hour) 650 MG ER tablet Take 1 tablet (650 mg) by mouth every 8 (eight) hours if needed for mild pain. Do not crush, chew, or split. 40 tablet 1 08/17/20 Active naproxen (Naprosyn) 500 MG tablet Take 1 tablet (500 mg) by mouth if needed in the morning and at bedtime for mild pain or moderate pain. 30 tablet 1 08/17/20 Active sertraline (Zoloft) 25 MG tablet Take 25 mg by mouth Once per day. Discontinued(Me d list cleanup (will not trigger notification to Pharmacy)) Active Problems Problem Noted Date Diagnosed Date [...] disease, she should be referred to the [facility], and I can monitor her liver enzymes 1- 2x/year and ultrasound annually. * referred to [facility] program 07/03/22 History of COVID-19 12/15/2021 Overview (07/07/2025): Started with symptoms 12/08/21- mild symptoms. Prediabetes 04/03/2021 Overview (07/07/2025): 03/31/21, hgb a1c = 6. -> referred to endo 06/28/21, hgb a1c = 6.1 -> referred again to endo as never seen * referred to [facility] program 07/03/22 PCOS (polycystic ovarian syndrome) 12/09/2020 Overview (07/07/2025): No hirsutism. Does have some acne. Labs c/w PCOS (elevated free testosterone). Nl 17-OH-P. OCPs started 06/12. Seen by 12/09/[address] Chance, [facility], agree with COCs. Vitamin D deficiency 09/23/2020 [...] chronic 03/21/2020 Overview (07/07/2025): Diagnosed 03/16/20 by [facility], Dr. Zoey Mariano, and seen ~10x, last visit 07/11/20. Chronic migraine 02/17/2010 Overview (07/07/2025): Since 5yo. Per mom, MRI normal in past. Has used cyproheptadine in the past, but gained weight. Gets 3-4x/week. Sleeps them off. [facility] (Dr. Jhonny Oshea) 05/14/19- started sumatriptan 25mg prn, f/u 3 mos. 01/16- worsening migraines after Covid 12/16, sumatriptan re-started, MigRelief started and improved on this. Encounters * This document contains information received from the source organization and may not represent a complete record from that organization. Date Type Department Care Team Description 08/17/2025 10:00 AM EDT Office Visit [address] [address] Renetta Matos DO Acute URI; Sore throat 08/17/2025 Travel 08/16/[address] [address] Renetta Matos DO Chart Prep 08/15/2025 Travel 07/09/2025 9:30 AM EDT Office Visit [address] [address] Renetta Matos DO Routine history and physical examination of adult (Primary Dx); Major depression, recurrent, chronic (CMS/HCC); Prediabetes; Fatty liver; BMI 50.0-59.9, adult (CMS/HCC); Dietary counseling; Exercise counseling 07/09/[address] [address] Renetta Matos DO Anxiety 07/09/2025 Travel 07/08/[address] [address] Renetta Matos DO chart prep 07/02/2025 Travel 06/30/2025 Patient Outreach [address] [address] Renetta Matos DO Pre-visit Planning (SDOH screening negative and tobacco screening negative) from Last 3 Months Immunizations Immunization Administration [...] Mass Index 60.19 08/17/2025 9:54 AM EDT Plan of Treatment Health Maintenance Due Date Last Done Comments Family Planning (PISQ) 2017 Pap Smear 2023 Chlamydia and Gonorrhea Screening 06/28/2023 06/28/2022, 04/06/2019 COVID-19 Vaccine ( season) 2025 05/18/2021, 04/20/2021 Influenza Vaccine (#1) 2025 , 08/23/2021, 09/19/2020, Additional history exists Depression Monitoring 01/09/2026 07/09/2025, 025 SDOH Screening 06/30/2026 06/30/2025 Disability Screening 07/02/2026 07/02/2025 Alcohol/Substance Use Screening 07/09/2026 07/09/2025 Diabetes: Hemoglobin A1C 07/22/2026 07/22/2025 Tobacco Screening 08/17/2026 08/17/2025 Lipid Panel 07/22/2030 07/22/2025 DTaP/Tdap/Td Vaccines (8 - Td or Tdap) [...] Completed 12/09/2020, 08/27, 09/23/2015, Additional history exists HIV Screening Completed 07/22/2025 Hepatitis C Screening Completed 07/22/2025 RSV under 20 months Aged Out No longe r eligible based on patient's age to complete this topic Rotavirus Vaccines Aged Out No longer eligible based on patient's age to complete this topic Procedures Procedure Name Priority Date/Time Associated Diagnosis Comments POC CROCKETT ID NOW STREP A Routine 08/17/2025 10:53 AM EDT Sore throat POCT INFLUENZA A Routine 08/17/2025 10:2 3 AM EDT Acute URI POCT INFLUENZA B Routine 08/17/2025 10:2 3 AM EDT Acute URI T-SPOT(R).TB Routine 07/22/2025 9:28 AM EDT Routine history and physical examination of adult Major depression, recurrent, chronic (CMS/HCC) Prediabetes Fatty liver BMI 50.0-59.9, adult (CMS/HCC) Dietary counseling Exercise counseling ALPHA FETOPROTEIN, TUMOR MARKER Routine 07/22/2025 9:28 AM EDT Routine history and physical examination of adult Major depression, recurrent, chronic (CMS/HCC) Prediabetes Fatty liver BMI 50.0-59.9, adult (CMS/HCC) Dietary counseling Exercise counseling HEPATITIS B CORE AB TOTAL Routine 07/22/2025 9:28 AM EDT Routine history and physical examination of adult Major depression, recurrent, chronic (CMS/HCC) Prediabetes Fatty liver BMI 50.0-59.9, adult (CMS/HCC) Dietary counseling Exercise counseling HEPATITIS A ANTIBODY, TOTAL Routine 07/22/2025 9:28 AM EDT Routine history and physical examination of adult Major depression, recurrent, chronic (CMS/HCC) Prediabetes Fatty liver BMI 50.0-59.9, adult (CMS/HCC) Dietary counseling Exercise counseling MEASLES, MUMPS, AND RUBELLA (MMR) AB (IGG) PANEL, IMMUNE STATUS Routine 07/22/2025 9:28 AM EDT Routine history and physical examination of adult Major depression, recurrent, chronic (CMS/HCC) Prediabetes Fatty liver BMI 50.0-59.9, adult (CMS/HCC) Dietary counseling Exercise counseling VARICELLA ZOSTER ANTIBODY, IGG Routine 07/22/2025 9:28 AM EDT Routine history and physical examination of adult Major depression, recurrent, chronic (CMS/HCC) Prediabetes Fatty liver BMI 50.0-59.9, adult (CMS/HCC) Dietary counseling Exercise counseling HEPATITIS B SURFACE ANTIBODY, QUALITATIVE Routine 07/22/2025 9:28 AM EDT Routine history and physical examination of adult Major depression, recurrent, chronic (CMS/HCC) Prediabetes Fatty liver BMI 50.0-59.9, adult (CMS/HCC) Dietary counseling Exercise counseling RPR (MONITOR) W/REFL TITER Routine 07/22/2025 9:28 AM EDT Routine history and physical examination of adult Major depression, recurrent, chronic (CMS/HCC) Prediabetes Fatty liver BMI 50.0-59.9, adult (CMS/HCC) Dietary counseling Exercise counseling HEPATITIS C AB W/REFL TO HCV RNA, QN, PCR Routine 07/22/2025 9:28 AM EDT Routine history and physical examination of adult Major depression, recurrent, chronic (CMS/HCC) Prediabetes Fatty liver BMI 50.0-59.9, adult (CMS/HCC) Dietary counseling Exercise counseling HIV 1/2 ANTIGEN/ANTIBODY, FOURTH GENERATION W/RFL Routine 07/22/2025 9:28 AM EDT Routine history and physical examination of adult Major depression, recurrent, chronic (CMS/HCC) Prediabetes Fatty liver BMI 50.0-59.9, adult (CMS/HCC) Dietary counseling Exercise counseling HEPATITIS B SURFACE ANTIGEN, EIA Routine 07/22/2025 9:28 AM EDT Routine history and physical examination of adult Major depression, recurrent, chronic (CMS/HCC) Prediabetes Fatty liver BMI 50.0-59.9, adult (CMS/HCC) Dietary counseling Exercise counseling BASIC METABOLIC PANEL Routine 07/22/2025 9:28 AM EDT Routine history and physical examination of adult Major depression, recurrent, chronic (CMS/HCC) Prediabetes Fatty liver BMI 50.0-59.9, adult (CMS/HCC) Dietary counseling Exercise counseling CBC Routine 07/22/2025 9:28 AM EDT Routine history and physical examination of adult Major depression, recurrent, chronic (CMS/HCC) Prediabetes Fatty liver BMI 50.0-59.9, adult (CMS/HCC) Dietary counseling Exercise counseling HEMOGLOBIN A1C Routine 07/22/2025 9:28 AM EDT Routine history and physical examination of adult Major depression, recurrent, chronic (CMS/HCC) Prediabetes Fatty liver BMI 50.0-59.9, adult (CMS/HCC) Dietary counseling Exercise counseling HEPATIC FUNCTION PANEL Routine 07/22/2025 9:28 AM EDT Routine history and physical examination of adult Major depression, recurrent, chronic (CMS/HCC) Prediabetes Fatty liver BMI 50.0-59.9, adult (CMS/HCC) Dietary counseling Exercise counseling VITAMIN D,25-OH,TOTAL,IA Routine 07/22/2025 9:28 AM EDT Routine history and physical examination of adult Major depression, recurrent, chronic (CMS/HCC) Prediabetes Fatty liver BMI 50.0-59.9, adult (CMS/HCC) Dietary counseling Exercise counseling TSH Routine 07/22/2025 9:28 AM EDT Routine history and physical examination of adult Major depression, recurrent, chronic (CMS/HCC) Prediabetes Fatty liver BMI 50.0-59.9, adult (CMS/HCC) Dietary counseling Exercise counseling LIPID PANEL, STANDARD Routine 07/22/2025 9:28 AM EDT Routine history and physical examination of adult Major depression, recurrent, chronic (CMS/HCC) Prediabetes Fatty liver BMI 50.0-59.9, adult (CMS/HCC) Dietary counseling Exercise counseling T4, FREE Routine 07/22/2025 9:28 AM EDT Routine history and physical examination of adult Major depression, recurrent, chronic (CMS/HCC) Prediabetes Fatty liver BMI 50.0-59.9, adult (CMS/HCC) Dietary counseling Exercise counseling from Last 3 Months Results * POCT Rapid Strep A CROCKETT ID NOW (08/17/2025 10:53 AM EDT) [facility] Rapid Strep A Screen Negative Negative, None Detected Swab 08/17/2025 10:5 3 AM EDT Renetta Matos DO POINT OF CARE TEST ENTER/TOMER T ORDERABLES Final Result * POCT Rapid Influenza B OSOM (08/17/2025 10:23 AM EDT) [facility] Rapid Influenza B Ag Negative Negative, Indeterminate Swab 08/17/2025 10:2 3 AM EDT Renetta Matos DO POINT OF CARE TEST ENTER/TOMER T ORDERABLES Final Result * POCT Rapid Influenza A OSOM (08/17/2025 10:23 AM EDT) [facility] Rapid Influenza A Ag Negative Negative, Indeterminate Swab Nasopharyngeal structure / Unknown 08/17/2025 10:23 AM EDT Renetta Matos DO POINT OF CARE TEST ENTER/TOMER T ORDERABLES Final Result * (ABNORMAL) Vitamin D, 25-Hydroxy, Total, Immunoassay (07/22/2025 9:28 AM EDT) [facility] Vitamin D 25-OH Total 18.4(L) >30 ng/mL [facility] Comment: Health Based Reference Values*< 20 ng/mL Ydkevoejp17-13 ng/mL Insufficient> 30 ng/mL Sufficient*Ivet CURTIS. N Engl J Med. 2007;357:266-280There is no well-established upper level of normal vitamin Dlevels. Some laboratories use 50 ng/mL as an upper limit ofnormal. However, toxicity is patient-dependent and may occurat any level. Careful correlation with the patient'spresentation is necessary and, if there is concern forvitamin D toxicity, treatment should be consideredirrespective of the serum level.Care must be taken in interpreting Vitamin D results fromdifferent laboratories and methodologies. Published datademonstrated that results from patients undergoinghemodialysis may show a negative bias when tested withvarious automated 25-OH vitamin D assays when compared toLC-MS/MS.When testing samples from patients whose predominant form ofVitamin D is Vitamin D2, such as patients receiving VitaminD2 supplementation, results that are subtherapeutic shouldbe confirmed with another method such as LC-MS/MS. Blood Venous blood specimen / Unknown 07/22/2025 9:28 AM EDT 07/22/2025 2:41 PM EDT us Renetta Matos DO LAB BLOOD ORDERABLES Final R esult [facility] [address] [place] [phone] * T-SPOT??.TB (07/22/2025 9:28 AM EDT) [facility] T Spot TB Negative Negative [facility] Comment:A negative test resu lt does not exclude the possibilityof exposure to or infection with Mycobacteriumtuberculosis (M. tuberculosis). Patients with recentexposure to TB infected individuals exhibiting anegative T-SPOT.TB result should be considered forretesting within 6 weeks or if other relevant clinicalsymptoms indicate. Results from T-SPOT.TB testing mustbe used in conjunction with each individual'sepidemiological history, current medical status,and results of other diagnostic evaluations.The T-SPOT.TB test is qualitative and results arereported as positive, borderline, or negative, giventhat the test controls perform as expected. In linewith the Centers for Disease Control and Prevention's2010 recommendation to report quantitative measurementsalongside the qualitative result, the laboratoryprovides spot counts for informational purposes only.The T-SPOT.TB test should not be interpreted as aquantitative test. TS PANEL A 0 [facility] TS PANEL B 0 [facility] Negative Control Passed [facility] Positive Control Passed [facility] Comment:For additional infor lexy, please refer tohttp://education.[employer]/faq/ZKW037(This link is being provided for informational/educational purposes only.)THIS TEST WAS PERFORMED AT:[facility] [id number] [place] [id number] PERLA MD,PHD 07/22/2025 9:28 AM EDT 07/22/2025 2:41 PM EDT us Renetta Matos DO LAB BLOOD ORDERABLES Final R esult [facility] [address] [place] [phone] * Measles, Mumps, and Rubella (MMR) Antibodies??(IgG) Panel, Immune Status (07/22/2025 9:28 AM EDT) Mumps Virus IgG Antibody >300.00 AU/mL [facility] Comment:AU/mL Interpretation ------- <9.00 Not consistent with immunity9.00-10.99 Equivocal>10.99 Consistent with immunityThe presence of mumps IgG antibody suggests immunizationor past or current infection with mumps virus. Rubella IgG Antibody 1.12 Index [facility] Comment:Index Interpretation ----- <0.90 Not consistent with immunity 0.90-0.99 Equivocal > or = 1.00 Consistent with immunityThe presence of rubella IgG antibody suggestsimmunization or past or current infection withrubella virus.THIS TEST WAS PERFORMED AT:[facility] [place] [id number] Andrez SAINI IgG (Measles) 63.90 AU/mL [facility] Comment:AU/mL Interpretation ----- <13.50 Not consistent with rytxtbqn09.50-16.49 Equivocal>16.49 Consistent with immunityThe presence of measles IgG suggests immunization orpast or current infection with measles virus.For additional information, please refer tohttp://education.[employer]/faq/LJC319(This link is being provided for informational/educational purposes only.) Blood Venous blood specimen / Unknown 07/22/2025 9:28 AM EDT 07/22/2025 2:41 PM EDT Renetta Matos LAB BLOOD ORDERABLES Final R esult Performing Organization Address [facility] Co de Phone Number [facility] [address] [place] [phone] * Hepatitis C Antibody with Reflex to HCV, RNA, Quantitative, Real-Time PCR (07/22/2025 9:28 AM EDT) Hepatitis C Antibody Nonreactive Nonreactive [facility] Comment:Antibodies to HCV no t detected; does not exclude early acuteHCV infection. Blood Venous blood specimen / Unknown 07/22/2025 9:28 AM EDT 07/22/2025 2:41 PM EDT Renetta Matos LAB BLOOD ORDERABLES Final R esult Performing Organization Address [facility] Co de Phone Number [facility] [address] [place] [phone] * Hepatitis A Antibody, Total (07/22/2025 9:28 AM EDT) Hepatitis A Antibody IgG REACTIVE Nonreactive [facility] Comment:The presence of IgG anti-HAV implies past HAV infection(recent or distant) or vaccination against HAV. Blood Venous blood specimen / Unknown 07/22/2025 9:28 AM EDT 07/22/2025 2:41 PM EDT Renetta Matos LAB BLOOD ORDERABLES Final R esult Performing Organization Address City/[facility] Co de Phone Number [facility] [address] [place] [phone] * Alpha-Fetoprotein, Tumor Marker (07/22/2025 9:28 AM EDT) Pathologist [facility] Alpha Fetoprotein 1.5 ng/mL [facility] Comment:Reference Range: <6. 1The use of AFP as a tumor marker in females is not recommended.This test was performed using the SharePlowchemiluminescent method. Values obtained fromdifferent assay methods cannot be usedinterchangeably. AFP levels, regardless ofvalue, should not be interpreted as absoluteevidence of the presence or absence of disease.THIS TEST WAS PERFORMED AT:[facility] [address] [id number] COHEN MD Blood Venous blood specimen / Unknown 07/22/2025 9:28 AM EDT 07/22/2025 2:41 PM EDT Renetta Matos DO LAB BLOOD ORDERABLES Final R esult Performing Organization Address City/[facility]/ZIP Co de Phone Number [facility] [address] [place] [phone] * Hepatitis B surface antigen, EIA (07/22/2025 9:28 AM EDT) Pathologist [facility] Hepatitis B Surface Ag Negative Negative [facility] Blood Venous blood specimen / Unknown 07/22/2025 9:28 AM EDT 07/22/2025 2:41 PM EDT Renetta Shawna DO LAB BLOOD ORDERABLES Final R esult Performing Organization Address City/[facility]/ZIP Co de Phone Number [facility] [address] [place] [phone] * Hepatitis B Core Antibody, Total (07/22/2025 9:28 AM EDT) Hepatitis B Core Antibody Nonreactive Nonreactive [facility] Blood Venous blood specimen / Unknown 07/22/2025 9:28 AM EDT 07/22/2025 2:41 PM EDT Renetta Shawna DO LAB BLOOD ORDERABLES Final R esult Performing Organization Address [facility] Co de Phone Number [facility] [address] [place] [phone] * RPR (Monitor) with Reflex to??Titer (07/22/2025 9:28 AM EDT) RPR (Monitor) w/Refl Titer NON-REACTI VE NON-REACT YEU [facility] Comment:THIS TEST WAS PERFOR MED AT:[facility] [place] [id number] COHEN MD Rapid Plasma Reagin Ab Titer TNP [facility] Blood Venous blood specimen / Unknown 07/22/2025 9:28 AM EDT 07/22/2025 2:41 PM EDT us Renetta Shawna DO LAB BLOOD ORDERABLES Final R esult Performing Organization Address [facility]/ZIP Co de Phone Number [facility] [address] [place] [phone] * HIV-1/2 Antigen and Antibodies, Fourth Generation, with Reflexes (07/22/2025 9:28 AM EDT) HIV AB/AG Nonreactive Nonreactive [facility] Comment:HIV-1 p24 Ag and/or HIV-1/HIV-2 Ab not detected.A test result that is nonreactive does not exclude thepossibility of exposure to or infection with HIV-1 and/orHIV-2. Nonreactive results in this assay for individualswith prior exposure to HIV-1 and/or HIV-2 may be due toantigen and antibody levels that are below the limit ofdetection of this assay.The [facility] HIV Ag/Ab Combo assay result andsupplemental assay results should be interpreted inconjunction with the patient's clinical presentation,history and other laboratory results. If the results areinconsistent with clinical evidence, additional testing issuggested to confirm the result. Blood Venous blood specimen / Unknown 07/22/2025 9:28 AM EDT 07/22/2025 2:41 PM EDT Renetta Matos LAB BLOOD ORDERABLES Final R esult Performing Organization Address City/[facility]/ZIP Co de Phone Number [facility] [address] [place] [phone] * Hepatitis B Surface Antibody, Qualitative (07/22/2025 9:28 AM EDT) Pathologist [facility] ~Hepatitis B Surface Antibody NONREACTIVE Nonreactive [facility] Comment:Nonreactive: < 8.00 mIU/mL Blood Venous blood specimen / Unknown 07/22/2025 9:28 AM EDT 07/22/2025 2:41 PM EDT Renetta [employer] LAB BLOOD ORDERABLES Final R esult Performing Organization Address City/[facility]/ZIP Co de Phone Number [facility] [address] [place] [phone] * (ABNORMAL) CBC (07/22/2025 9:28 AM EDT) White Blood Count 10.9(H) 4.8 - 10.8 X10*3/uL [facility] Red Blood Count 5.15 4.20 - 5.50 X10*6/uL [facility] Hemoglobin 13.9 12.0 - 16.0 g/dl [facility] Hematocrit 43.9 37.0 - 47.0 % [facility] Mean Corpuscular Volume 85.2 80.0 - 98.0 fL [facility] Mean Corpuscular Hemoglobin 27.0 27.0 - 33.0 pg [facility] Mean Corpuscular HGB Conc 31.7 31.0 - 35.0 g/dl [facility] Red Cell Distribution Width 15.1 11.0 - 16.0 % [facility] Platelet Count 443(H) 160 - 400 X10*3/uL [facility] Mean Platelet Volume 10.0 9.4 - 12.3 fL [facility] NRBC Pct Auto 0.0 0.0 - 0.2 /100WBC [facility] NRBC Abs Auto 0.000 0.0 - 0.012 X10*3/uL [facility] Blood Venous blood specimen / Unknown 07/22/2025 9:28 AM EDT 07/22/2025 2:41 PM EDT us Renetta Matos DO LAB BLOOD ORDERABLES Final R esult [facility] [address] [place] [phone] * Varicella zoster antibody, IgG (07/22/2025 9:28 AM EDT) Varicella IgG Antibody 2.56 S/CO [facility] Comment:Signal to Cut-off S/ CO Interpretation --------- <1.00 Negative - Antibody not detected > or = 1.00 Positive - Antibody detected A positive result indicates that the patient has antibody to VZV but does not differentiate between an active or past infection. The clinical diagnosis must be interpreted in conjunction with the clinical signs and symptoms of the patient. This assay reliably measures immunity due to previous infection but may not be sensitive enough to detect antibodies induced by vaccination. Thus, a negative result in a vaccinated individual does not necessarily indicate susceptibility to VZV infection. A more sensitive test for vaccination-induced immunity is Varicella Zoster Virus Antibody Immunity Screen, ACIF.THIS TEST WAS PERFORMED AT:[facility] [address] [id number] COHEN MD Blood Venous blood specimen / Unknown 07/22/2025 9:28 AM EDT 07/22/2025 2:41 PM EDT Renetta Shawna LAB BLOOD ORDERABLES Final R esult Performing Organization Address [facility] Co de Phone Number [facility] [address] [place] [phone] * TSH (07/22/2025 9:28 AM EDT) Thyroid Stimulating Hormone 1.06 0.32 - 4.0 uIU/mL [facility] Comment:TSH 3rd Generation ( [employer]) Blood Venous blood specimen / Unknown 07/22/2025 9:28 AM EDT 07/22/2025 2:41 PM EDT Renetta Matos DO LAB BLOOD ORDERABLES Final R esult Performing Organization Address [facility] Co de Phone Number [facility] [address] [place] [phone] * T4, Free (07/22/2025 9:28 AM EDT) Free T4 (Free Thyroxine) 1.05 0.71 - 1.85 ng/dL [facility] Blood Venous blood specimen / Unknown 07/22/2025 9:28 AM EDT 07/22/2025 2:41 PM EDT Renetta Shawna LAB BLOOD ORDERABLES Final R esult Performing Organization Address [facility] Co de Phone Number [facility] [address] [place] [phone] * (ABNORMAL) Hemoglobin A1c (07/22/2025 9:28 AM EDT) Hemoglobin A1c 6.3(H) <6.0 % [facility] Comment:Hemoglobin A1C Refer ence Range Adults: 4.8 - 6.0 % Non diabetic: < 6.0 % Goal: < 7.0 %Additional Action Suggested: > 8.0 %Note: Hemoglobin A1c results are invalid for patients with abnormal amounts of HbF. Blood transfusions may impact the HbA1c concentration in the patient sample. Estimated Average Glucose 134 mg/dL [facility] Comment:eAG = Estimated ave rage glucose which is %A1C expressed asaverage glucose, using the formula of the Y0A-NuyvjtyVodbiub Glucose study (ADAG), Diabetes Care, Vol.31,#8,Jun. 2007 Blood Venous blood specimen / Unknown 07/22/2025 9:28 AM EDT 07/22/2025 2:41 PM EDT us Renetta Matos DO LAB BLOOD ORDERABLES Final R esult [facility] [address] [place] [phone] * (ABNORMAL) Hepatic Function Panel (07/22/2025 9:28 AM EDT) Bilirubin, Total 0.3 0.0 - 1.0 mg/dL [facility] Bilirubin, Direct 0.1 0.0 - 0.5 mg/dL [facility] Aspartate Amino Transferase 38(H) 5 - 31 U/L [facility] Alanine Aminotransferase 46(H) 0 - 31 U/L [facility] Total Protein 7.8 6.5 - 8.0 g/dL [facility] Albumin Level 4.2 3.5 - 5.0 g/dL [facility] Alkaline Phosphatase 78 39 - 117 U/L [facility] Blood Venous blood specimen / Unknown 07/22/2025 9:28 AM EDT 07/22/2025 2:41 PM EDT Renetta Matos DO LAB BLOOD ORDERABLES Final R esult Performing Organization Address [facility] Co de Phone Number [facility] [address] [place] [phone] * (ABNORMAL) Lipid Panel, Standard (07/22/2025 9:28 AM EDT) Triglycerides 94 <150 mg/dL [facility] Comment:Desirable Triglyceri de: less than 150 mg/dLBorderline High Triglyceride 150-199 mg/dLHigh Triglyceride: 200-499 mg/dLVery High Triglyceride: greater than or equal to 5OO mg/dL Cholesterol 163 <200 mg/dL [facility] Comment:Desirable Cholestero l: less than 200 mg/dLBorderline High Cholesterol: 200-239 mg/dLHigh Cholesterol: greater than 239 mg/dL LDL Cholesterol Calculated 100(H) <100 mg/dL [facility] Comment:Desirable LDL: less than 100 mg/dLNear Optimal/Above Optimal LDL: 110- 129 mg/dLBorderline High LDL: 130-159 mg/dLHigh LDL: 160-189 mg/dLVery High LDL: greater than or equal to 190 mg/dL HDL Cholesterol 45 >40 mg/dL [facility] Comment:Desirable HDL: great er than 40 mg/dL Note: This HDL assay may give artificially low results in patients with liver disease. Blood Venous blood specimen / Unknown 07/22/2025 9:28 AM EDT 07/22/2025 2:41 PM EDT Renetta Matos DO LAB BLOOD ORDERABLES Final R esult Performing Organization Address City/[facility]/ZIP Co de Phone Number [facility] [address] [place] [phone] * Basic Metabolic Panel (07/22/2025 9:28 AM EDT) Sodium 138 135 - 145 mmol/L [facility] Potassium 4.2 3.3 - 5.1 mmol/L [facility] Chloride 104 96 - 108 mmol/L [facility] Carbon Dioxide 26 22 - 29 mmol/L [facility] Anion Gap 12 12 - 20 [facility] Urea Nitrogen (BUN) 11 9 - 16 mg/dL [facility] Creatinine, Serum 0.67 0.5 - 1.4 mg/dL [facility] Estimated Glomerular Filt Rate >60 [facility] Comment:Chronic Kidney Disea se: Estimated GFR < 60 mL/min/1.18o8Tzpmht Kidney Disease: Estimated GFR < 15 mL/min/1.73m2 Glucose 80 60 - 115 mg/dL [facility] Calcium 9.3 8.4 - 10.2 mg/dL [facility] Blood Venous blood specimen / Unknown 07/22/2025 9:28 AM EDT 07/22/2025 2:41 PM EDT us Renetta Matos DO LAB BLOOD ORDERABLES Final R esult [facility] [address], [place] [phone] from Last 3 [place] [id number] [facility] Care Teams Ic Design Manager Relationship Specialty Start Date End Date Renetta Matos DO [address] [place] [phone] PCP - General Family Medicine 07/12/25
--- OUTSIDE RECORDS SUMMARY | 2025-08-17 18:50 | XMS_ITS | Clinical Summary ---
Author Organization [facility] Address [address] [place] [phone] Phone Care Team Providers Care Aco Coordinator Name Role Phone Jaleesa Ghosh MD Primary [...] 2002 Cervical Cancer Screening: Pap Smear 2023 DTaP,Tdap,and Td Vaccines (7 - Td or Tdap) 08/10/2024 08/10/2014, 05/15/2006, 07/15/2003, Additional history exists Depression Screening 11/25/2024 HIV Screening 01/06/2025 Hepatitis C Screening 01/06/2025 Social Influencers of Health Screening 01/06/2025 COVID-19 Vaccine ( season) 2025 Influenza Vaccine (#1) 2025 , 09/19/2020, 09/23/2015, Additional history exists RSV Immunization Adult Patients (1 - 1-dose 75+ series) 2077 Hepatitis [...] patient's age to complete this topic Insurance [facility] PLAN Care Teams Aco Coordinator Relationship Specialty Start Date End Date Jaleesa Ghosh MD PCP - General 08/14/23
--- OUTSIDE RECORDS SUMMARY | 2025-08-17 18:50 | XMS_ITS | Encounter Summary ---
Author Organization [employer] Address [address] [place] [address] Care Team Providers Care Data Processing Supervisor Name Role Phone WesRenetta martin Primary Care Provider [phone] Encounter Details Date Type Department Care Team (Latest Contact Info) Description 08/17/2025 Travel Social History Tobacco Use Types Packs/Day [...] documented as of this encounter Care Teams Data Processing Supervisor Relationship Specialty Start Date End Date Renetta Matos DO [address] [place] [phone] PCP - General Family Medicine 07/12/25 documented as of this encounter
--- OUTSIDE RECORDS SUMMARY | 2025-08-17 18:50 | XMS_ITS | Encounter Summary ---
Author Organization [facility] Address [address] [place] [phone] Phone Care Team Providers Care Animal Trapper Name Role Phone Hannah Griffith MD Primary Care Provider [phone] Encounter Details Date Type Department Care Team (Late st Contact Info) Description 07/11/2017 Conversion Encounter [facility] [address] [place] [address] Social History Tobacco Use Types Packs/Day Years [...] on filedocumented in this encounter Care Teams Animal Trapper Relationship Specialty Start Date End Date Hannah Griffith MD [address] [place] [address] PCP - General Pediatrics 04/06/19 05/14/23 documented as of this encounter
--- OUTSIDE RECORDS SUMMARY | 2025-08-17 18:50 | XMS_ITS | Encounter Summary ---
Author Organization [facility] Address [address] [place] [address] Phone Care Team Providers Care Panelboard Assembler Name Role Phone Hannah Griffith MD Primary Care Provider [phone] Reason for Visit * Reason Comments Med Refill Encounter Details Date Type Department Care Team (Late st Contact Info) Description 12/25/2020 Refill [facility] [address] [place] [address] Hannah Griffith MD [address] [place] [address] Anxiety and depression; Moderate episode of recurrent [...] disorder documented in this encounter Care Teams Panelboard Assembler Relationship Specialty Start Date End Date Hannah Griffith MD [address] [place] [address] PCP - General Pediatrics 04/06/19 05/14/23 documented as of this encounter
== END 2025-08-17 17:25 | disposition home or self-care (01) ==
LOC: HO.LNP 17:24
PROVIDERS: Visit Provider Family Medicine
DX: J02.9 Acute pharyngitis, unspecified (principal)
CPT/HCPCS: 87070; 87147

== ENCOUNTER 2025-11-10 14:55 | Outpatient (REF) | payer OTHER, SELFPAY ==
--- NOTE | ~2025-11-10 | XR_ITS ---
EXAMINATION: XR FOOT, LEFT CLINICAL INFORMATION: PAIN and cramping COMPARISON: None available. TECHNIQUE: AP, lateral, and oblique views of the left foot. FINDINGS: Small calcaneal spur is present. No fracture is evident. There are no degenerative changes. There is no joint diastases or malalignment. XR/XR foot LT min 3V IMPRESSION: Unremarkable left foot. Electronically signed by: Juan David Coto MD 11/10/2025 03:44 PM EST
--- NOTE | ~2025-11-10 | XR_ITS ---
EXAMINATION: XR ANKLE, left CLINICAL INFORMATION: PAIN and cramping COMPARISON: None available. TECHNIQUE: AP, lateral, and mortise views lower extremity joint, ankle. FINDINGS: Ankle mortise is congruent. There is no widening of the syndesmosis. Talar dome is intact. There is a small plantar calcaneal enthesophyte(s). XR/XR ankle LT min 3V IMPRESSION: Aside from small calcaneal spur, left ankle is unremarkable. Electronically signed by: Juan David Coto MD 11/10/2025 03:43 PM EST
--- NOTE | ~2025-11-10 | XR_ITS ---
EXAMINATION: XR FOOT 3 OR MORE VIEWS RIGHT HISTORY: PAIN COMPARISON: There are no prior studies available for comparison. FINDINGS: Three views of the right foot are submitted. Osseous mineralization is normal. There is no fracture or dislocation. The joint spaces are preserved. There is a tiny plantar calcaneal spur. The soft tissues are unremarkable. XR/XR foot RT min 3V IMPRESSION: Tiny plantar calcaneal spur. Otherwise unremarkable examination of the right foot. Electronically signed by: Aaron Benjamin MD 11/10/2025 03:43 PM YONNY
--- OUTSIDE RECORDS SUMMARY | 2025-11-10 14:00 | XMS_ITS | Encounter Summary ---
Author Organization [employer] Address [address] [place] [address] Care Team Providers Care Soft Tile Setter Name Role Phone Renetta Matos DO Primary Care Provider Encounter Details Date Type Department Care Team (Late st Contact Info) Description 11/10/2025 2:00 PM EST Office Visit [facility] [address], [place] [phone] Renetta Matos DO [address] [place], [place] [phone] Bilateral foot pain (Primary Dx); Encounter for immunization; Chronic pain of left ankle; Prediabetes; Fatty liver Social History Tobacco Use Types Packs/Day Years Used Date Smoking Tobacco: Never Smokeless Tobacco: Never Alcohol Use Standard Drinks/Week Comments Never 0 (1 standard drink = 0.6 oz pur e alcohol) Depression Answer Date Recorded Patient Health Questionnaire-9 Score 19 11/10/2025 Patient Health Questionnaire-9 Score 19 11/10/2025 Last PHQ-9: Questionnaire Data Not on file 1 01/11/2025 Housing Stability Answer Date Recorded What is [...] Answer Date Recorded Patient Health Questionnaire-2 Score 4 11/10/2025 Internet Access Answer Date Recorded Internet Access [...] Sign Reading Time Taken Comments Blood Pressure 152/100 11/10/2025 2:48 PM EST Pulse 92 11/10/2025 2:12 PM EST Temperature 36.6 C (97.8 F) 11/10/2025 2:12 PM EST Respiratory Rate 20 11/10/2025 2:12 PM EST Oxygen Saturation - - Inhaled Oxygen Concentration - - Weight 140 kg (308 lb) 11/10/2025 2:12 PM EST Height 149.9 cm (4' 11 ) 11/10/2025 2:12 PM EST Body Mass Index 62.21 11/10/2025 2:12 PM EST documented in this encounter Functional Status * Over the past 2 weeks, how often have you been bothered by any of the following problems? Question Answer Date of Assessment Author Little interest or pleasure in doing things More than half the days 11/10/2025 2:15 PM EST Bijal Ochoa [place] Feeling down, depressed, or hopeless More than half the days 11/10/2025 2:15 PM EST Bijal Ochoa [place] Patient Health Questionnaire-2 Score 4 11/10/2025 2:15 PM EST Bijal Ochoa MA * Question Answer Date of Assessment Author Trouble falling or staying asleep, or sleeping too much Nearly every day 11/10/2025 2:15 PM EST Bijal Ochoa MA Feeling tired or having little energy Nearly every day 11/10/2025 2:15 PM EST Bijal Ochoa MA Poor appetite or overeating More than half the days 11/10/2025 2:15 PM Bijal Fabian [place] Feeling bad about yourself - or that you are a failure or have let yourself or your family down Nearly every day 11/10/2025 2:15 PM Bijal Fabian MA Trouble concentrating on things, such as reading the newspaper or watching television More than half the days 11/10/2025 2:15 PM Bijal Fabian MA Moving or speaking so slowly that other people could have noticed? Or the opposite - being so fidgety or restless that you have been moving around a lot more than usual. More than half the days 11/10/2025 2:15 PM Bijal Fabian MA Thoughts that you would be better off or hurting yourself in some way Not at all 11/10/2025 2:15 PM Bijal Fabian MA Patient Health Questionnaire-9 Score 19 11/10/2025 2:15 PM Bijal Fabian MA * Over the last 2 weeks, how often have you been bothered by any of the following problems? Question Answer Date of Assessment Author Feeling nervous, anxious, or on edge 1 11/10/2025 2:15 PM Bijal Fabian MA Not being able to stop or co ntrol worrying 1 11/10/2025 2:15 PM Bijal Fabian MA Worrying too much about diff erent things 1 11/10/2025 2:15 PM Bijal Fabian MA Trouble relaxing 1 11/10/2025 2:15 PM Bijal Mcghee MA Being so restless that it is hard to sit still 0 11/10/2025 2:15 PM Bijal Fabian MA Becoming easily annoyed or irritable 0 11/10/2025 2:15 PM Bijal Fabian MA Feeling afraid as if somethi ng awful might happen 0 11/10/2025 2:15 PM Bijal Fabian MA JUAN FRANCISCO-7 Total Score 4 11/10/2025 2:15 PM Bijal Fabian MA * If you checked off any problems on this questionnaire, Question Answer Date of Assessment Author How difficult have these problems made it for you to do your work, take care of things at home, or get along with other people? Not difficult at all 11/10/2025 2:15 PM EST Ochoa, BijalCAITLIN documented as of this encounter Plan of Treatment Not on file documented as of this encounter Procedures Procedure Name Priority Date/Time Associated Diagnosis Comments XR FOOT 3+ VIEWS RIGHT Routine 11/10/2025 3:27 PM EST Bilateral foot pain XR ANKLE 3+ VIEWS LEFT Routine 11/10/2025 3:25 PM EST Chronic pain of left ankle XR FOOT 3+ VIEWS LEFT Routine 11/10/2025 3:24 PM EST Bilateral foot pain documented in this encounter Results * XR Foot 3+ Views Right (11/10/2025 3:27 PM EST) Anatomical Region Laterality Modality Lower Extremities, Foot Right [facility] 11/10/2025 3:27 PM EST Narrative 11/10/2025 3:45 PM EST [facility] [address] [place] [address] XRay Report Signed Patient: Vinod Alarcon MR#: [id number] : 2000 Acct:[id number] Age/Sex: 25 / F ADM Date: 11/10/25 Loc: .HHCX Attending Dr: Renetta Matos DO Ordering Physician: Renetta Matos DO Date of Service: 11/10/25 Procedure(s): XR foot RT min 3V Accession Number(s): [id number] cc: Renetta Matos DO Reason for Exam: PAIN EXAMINATION: XR FOOT 3 OR MORE VIEWS RIGHT HISTORY: PAIN COMPARISON: There are no prior studies available for comparison. FINDINGS: Three views of the right foot are submitted. Osseous mineralization is normal. There is no fracture or dislocation. The joint spaces are preserved. There is a tiny plantar calcaneal spur. The soft tissues are unremarkable. XR/XR foot RT min 3V IMPRESSION: Tiny plantar calcaneal spur. Otherwise unremarkable examination of the right foot. Electronically signed by: Aaron Benjamin MD 11/10/2025 03:43 PM EST RP Dictated By: Aaron Benjamin MD Signed By: <Electronically signed by Aaron Benjamin MD in OV> 11/10/25 1543 DD/ 1527 TD/TT: 11/10/25 1530 Cross Tie Turner: Procedure Note Donotuseinterpreter, Image - 11/10/[address] [address] XRay Report Signed Patient: Vinod Alarcon MR#: [id number] : 2000Acct:[id number] Age/Sex: 25 M Date: 11/10/25 Loc: .HHCX Attending Dr: Renetta Matos DO Ordering Physician: Renetta Matos DO Date of Service: 11/10/25 Procedure(s): XR foot RT min 3V Accession Number(s): [id number] cc: Renetta Matos DO Reason for Exam: PAIN EXAMINATION: XR FOOT 3 OR MORE VIEWS RIGHT HISTORY: PAIN COMPARISON: There are no prior studies available for comparison. FINDINGS: Three views of the right foot are submitted. Osseous mineralization is normal. There is no fracture or dislocation. The joint spaces are preserved. There is a tiny plantar calcaneal spur. The soft tissues are unremarkable. XR/XR foot RT min 3V IMPRESSION: Tiny plantar calcaneal spur. Otherwise unremarkable examination of the right foot. Electronically signed by: Aaron Benjamin MD 11/10/2025 03:43 PM EST RP Dictated By: Aaron Benjamin MD Signed By: <Electronically signed by Aaron Benjamin MD in OV> 11/10/25 1543 DD/ 1527 TD/TT: 11/10/25 1530 Cross Tie Turner: Renetta Matos DO IMG XR PROCEDURES Final Resu lt * XR Ankle 3+ Views Left (11/10/2025 3:25 PM EST) Anatomical Region Laterality Modality Lower Extremities, Ankle Left Radiogr aphic Imaging 11/10/2025 3:25 PM EST Narrative 11/10/2025 3:46 PM EST [address] [address] XRay Report Signed Patient: Vinod Alarcon MR#: [id number] : 2000 Acct:[id number] Age/Sex: 25 / F ADM Date: 11/10/25 Loc: .HHCX Attending Dr: Renetta Matos DO Ordering Physician: Renetta Matos DO Date of Service: 11/10/25 Procedure(s): XR ankle LT min 3V Accession Number(s): [id number] cc: Renetta Matos DO Reason for Exam: PAIN EXAMINATION: XR ANKLE, left CLINICAL INFORMATION: PAIN and cramping COMPARISON: None available. TECHNIQUE: AP, lateral, and mortise views lower extremity joint, ankle. FINDINGS: Ankle mortise is congruent. There is no widening of the syndesmosis. Talar dome is intact. There is a small plantar calcaneal enthesophyte(s). XR/XR ankle LT min 3V IMPRESSION: Aside from small calcaneal spur, left ankle is unremarkable. Electronically signed by: Juan David Coto MD 11/10/2025 03:43 PM EST Dictated By: Juan David Coto MD Signed By: <Electronically signed by Juan David Coto MD in OV> 11/10/25 1543 DD/ 1525 TD/TT: 11/10/25 1530 Cross Tie Turner: Procedure Note Donotuseinterpreter, Image - 11/10/[address] [address] XRay Report Signed Patient: iVnod Alarcon MR#: [id number] : 2000Acct:[id number] Age/Sex: 25 / FADM Date: 11/10/25 Loc: PETE Attending Dr: Renetta Matos DO Ordering Physician: Renetta Matos DO Date of Service: 11/10/25 Procedure(s): XR ankle LT min 3V Accession Number(s): [id number] cc: Renetta Matos DO Reason for Exam: PAIN EXAMINATION: XR ANKLE, left CLINICAL INFORMATION: PAIN and cramping COMPARISON: None available. TECHNIQUE: AP, lateral, and mortise views lower extremity joint, ankle. FINDINGS: Ankle mortise is congruent. There is no widening of the syndesmosis. Talar dome is intact. There is a small plantar calcaneal enthesophyte(s). XR/XR ankle LT min 3V IMPRESSION: Aside from small calcaneal spur, left ankle is unremarkable. Electronically signed by: Juan David Coto MD 11/10/2025 03:43 PM EST Dictated By: Juan David Coto MD Signed By: <Electronically signed by Juan David Coto MD in OV> 11/10/25 1543 DD/ 1525 TD/TT: 11/10/25 1530 Cross Tie Turner: Renetta Matos DO IMG XR PROCEDURES Final Resu lt * XR Foot 3+ Views Left (11/10/2025 3:24 PM EST) Anatomical Region Laterality Modality Lower Extremities, Foot Left Radiogra phic Imaging 11/10/2025 3:24 PM EST Narrative 11/10/2025 3:47 PM EST [address] [address] XRay Report Signed Patient: Vinod Alarcon MR#: [id number] : 2000 Acct:[id number] Age/Sex: 25 / F ADM Date: 11/10/25 Loc: PETE Attending Dr: Renetta Matos DO Ordering Physician: Renetta Matos DO Date of Service: 11/10/25 Procedure(s): XR foot LT min 3V Accession Number(s): [id number] cc: Renetta Matos DO Reason for Exam: PAIN EXAMINATION: XR FOOT, LEFT CLINICAL INFORMATION: PAIN and cramping COMPARISON: None available. TECHNIQUE: AP, lateral, and oblique views of the left foot. FINDINGS: Small calcaneal spur is present. No fracture is evident. There are no degenerative changes. There is no joint diastases or malalignment. XR/XR foot LT min 3V IMPRESSION: Unremarkable left foot. Electronically signed by: Juan David Coto MD 11/10/2025 03:[address] [facility] Dictated By: Juan David Coto MD Signed By: <Electronically signed by Juan David Coto MD in OV> 11/10/25 1544 DD/ 1524 TD/TT: 11/10/25 1530 Cross Tie Turner: Procedure Note Donotuseinterpreter, Image - 11/10/[address] [address] XRay Report Signed Patient: Vinod Alarcon MR#: [id number] : 2000Acct:[id number] Age/Sex: 25 / FADM Date: 11/10/25 Loc: HO.HHCX Attending Dr: Renetta Matos DO Ordering Physician: Renetta Matos DO Date of Service: 11/10/25 Procedure(s): XR foot LT min 3V Accession Number(s): [id number] cc: Renetta Matos DO Reason for Exam: PAIN EXAMINATION: XR FOOT, LEFT CLINICAL INFORMATION: PAIN and cramping COMPARISON: None available. TECHNIQUE: AP, lateral, and oblique views of the left foot. FINDINGS: Small calcaneal spur is present. No fracture is evident. There are no degenerative changes. There is no joint diastases or malalignment. XR/XR foot LT min 3V IMPRESSION: Unremarkable left foot. Electronically signed by: Juan David Coto MD 11/10/2025 03:44 PM EST RP Dictated By: Juan David Coto MD Signed By: <Electronically signed by Juan David Coto MD in OV> 11/10/25 1544 DD/ 1524 TD/TT: 11/10/25 1530 Cross Tie Turner: Renetta Matos DO IMG XR PROCEDURES Final Resu lt documented in this encounter Visit Diagnoses Diagnosis Bilateral foot pain- Primary Encounter for immunization Chronic pain of left ankle Prediabetes Other abnormal glucose Fatty liver Other chronic nonalcoholic liver disease documented in this encounter Additional Health Concerns Assessment Noted Time PHQ-9 Depression Total Score: 19 025 2:15 PM EST documented as of this encounter Care Teams Soft Tile Setter Relationship Specialty Start Date End Date Renetta Matos DO [address] [place] [phone] PCP - General Family Medicine 07/12/25 documented as of this encounter
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
--- OUTSIDE RECORDS SUMMARY | 2025-11-10 19:52 | XMS_ITS | Encounter Summary ---
Author Organization [employer] Address [address] [place] [address] Care Team Providers Care Director Of Quality Improvement Name Role Phone WesRenetta martin Primary Care Provider [phone] Encounter Details Date Type Department Care Team (Latest Contact Info) Description 11/10/2025 Travel Social History Tobacco Use Types Packs/Day [...] AM EDT documented as of this encounter Functional Status * Over the past 2 weeks, how often have you been bothered by any of the following problems? Question Answer Date of Assessment Author Little interest or pleasure in doing things More than half the days 11/10/2025 2:15 PM Bijal Fabian MA Feeling down, depressed, or hopeless More than half the days 11/10/2025 2:15 PM Bijal Fabian MA Patient Health Questionnaire-2 Score 4 11/10/2025 2:15 PM Bijal Fabian MA * Question Answer Date of Assessment Author Trouble falling or staying asleep, or sleeping too much Nearly every day 11/10/2025 2:15 PM Bijal Fabian MA Feeling tired or having little energy Nearly every day 11/10/2025 2:15 PM Bijal Fabian MA Poor appetite or overeating More than [...] or on edge 1 11/10/2025 2:15 PM EST Bijal Ochoa MA Not being able to stop or co ntrol worrying 1 11/10/2025 2:15 PM EST Bijal Ochoa MA Worrying too much about diff erent things 1 11/10/2025 2:15 PM EST Bijal Ochoa MA Trouble relaxing 1 11/10/2025 2:15 PM EST Bijal Xavier MA Being so restless that it is hard to sit still 0 11/10/2025 2:15 PM EST Bijal Ochoa MA Becoming easily annoyed or irritable 0 11/10/2025 2:15 PM EST Bijal Ochoa MA Feeling afraid as if somethi ng awful might happen 0 11/10/2025 2:15 PM EST Bijal Ochoa MA JUAN FRANCISCO-7 Total Score 4 11/10/2025 2:15 PM EST Bijal Ochoa MA * If you checked off any problems on this questionnaire, Question Answer Date of Assessment Author How difficult have these problems made it for you to do your work, take care of things at home, or get along with other people? Not difficult at all 11/10/2025 2:15 PM EST Bijal Ochoa MA documented as of this encounter Plan of Treatment Not on file documented as of this encounter Visit Diagnoses Not on filedocumented in this encounter Additional Health Concerns Assessment Noted Time PHQ-9 Depression Total Score: 19 025 2:15 PM EST documented as of this encounter Care Teams Director Of Quality Improvement Relationship Specialty Start Date End Date Renetta Matos DO [address] [place] [address] PCP - General Family Medicine 07/12/25 documented as of this encounter
--- OUTSIDE RECORDS SUMMARY | 2025-11-10 19:52 | XMS_ITS | Encounter Summary ---
Author Organization [employer] Address [address] [facility] [address] [place] [address] Care Team Providers Care Librarian Special Collections Name Role Phone Renetta Matos DO Primary Care Provider Reason for Visit * Reason Onset Date Comments Chart Prep 11/08/2025 Encounter Details Date Type Department Care Team (Late st Contact Info) Description 11/08/2025 Telephone [facility] [address] [place], [place] [phone] Renetta Matos DO [address] [place], [place] [phone] Chart Prep Social History Tobacco Use Types [...] Telephone Encounter - Kaur Jaimes MA - 11/08/2025 1:58 PM EST Chart Prep Labs: done Images: not applicable Referrals: [place]-11/17/25([facility] [place] Vaccines due: Covid and Flu Screenings: STI screening, LMP, and PISQ Overdue care gaps: PHQ-9, JUAN FRANCISCO-7, and Disability screen documented in this encounter Plan of Treatment Not on file documented as of this encounter Visit Diagnoses Not on filedocumented in this encounter Additional Health Concerns Assessment Noted Time PHQ-9 Depression Total Score: 21 025 10:01 AM EDT documented as of this encounter Care Teams Librarian Special Collections Relationship Specialty Start Date End Date Renetta Matos DO [address] [place] [id number] PCP - General Family Medicine 07/12/25 documented as of this encounter
--- OUTSIDE RECORDS SUMMARY | 2025-11-10 19:52 | XMS_ITS | Encounter Summary ---
Author Organization [employer] Address [address] [facility] [address] [place] [address] Care Team Providers Care Art Gilder Name Role Phone Renetta Matos DO Primary Care Provider Reason for Visit * Reason Onset Date Comments Referral 09/22/2025 Encounter Details Date Type Department Care Team (Late st Contact Info) Description 09/22/[address] [facility] [address] [place], [place] [phone] Renetta Matos DO [address] [place], [place] [phone] Referral Social History Tobacco Use Types Packs/Day Years [...] t he electric, gas, oil or water [employer] threatened to shut off services in your [...] encounter Miscellaneous Notes * Telephone Encounter - Divina Fonseca - 09/22/2025 9:08 AM EDT TC from patient stating that during the visit on 08/17 with PCP, a referral for a sleep study was discussed but she never received it. Patient is now requesting the referral. Contact pt at [phone] documented in this encounter Plan of Treatment Not on file documented as of this encounter Visit Diagnoses Not on filedocumented in this encounter Additional Health Concerns Assessment Noted Time PHQ-9 Depression Total Score: 21 025 10:01 AM EDT documented as of this encounter Care Teams Art Gilder Relationship Specialty Start Date End Date Renetta Matos DO [address] [place] [id number] PCP - General Family Medicine 07/12/25 documented as of this encounter
--- OUTSIDE RECORDS SUMMARY | 2025-11-10 19:53 | XMS_ITS | Clinical Summary ---
Author Organization [employer] Address [address] [place] [address] Care Team Providers Care Mechanical Engineering Lecturer Name Role Phone Renetta Matos DO Primary Care Provider [phone] Allergies No known active allergies Medications * This document contains information received from the source organization and may not represent a complete record from that organization. hydrOXYzine pamoate (Vistaril) 25 MG capsuleIndicat ions:Anxiety Take 1 capsule (25 mg) by mouth every 6 (six) hours if needed for anxiety. 40 capsule 1 07/12/20 25 Active cetirizine (ZyrTEC) 10 MG tablet Take 1 tablet (10 mg) by mouth Once per day. 30 tablet 11 07/14/20 25 026 Active mometasone (Nasonex) 50 MCG/ACT nasal spray Administer 2 sprays into each nostril Once per day. 17 g 07/14/20 25 026 Active metFORMIN XR (Glucophage-XR ) 500 MG 24 hr tablet Take 1 tablet (500 mg) by mouth with evening meal. Do not crush, chew, or split. 30 tablet 07/14/20 25 026 Active Blood Pressure kit 1 each 1 (one) time per week. 1 kit 08/17/20 25 Active Spacer/Aero-Ho lding Chambers (AeroChamber MV) inhaler Use as instructed with albuterol MDI 1 each 08/17/20 25 026 Active sodium chloride (Sampson Nasal Chelsea) 0.65 % nasal spray Administer 2 sprays into each nostril if needed for congestion. 30 mL 3 08/17/20 25 026 Active naproxen (Naprosyn) 500 MG tablet Take 1 tablet (500 mg) by mouth if needed in the morning and at bedtime for mild pain or moderate pain. 30 tablet 1 08/17/20 25 026 Active albuterol 108 (90 Base) MCG/ACT inhaler INHALE 2 PUFFS BY MOUTH EVERY 4 HOURS NEEDED FOR WHEEZING OR SHORTNESS OF BREATH 18 g 1 09/10/20 Active Tirzepatide (Mounjaro) 2.5 MG/0.5ML solution auto-injectorI ndications:Pre diabetes,Fatty liver Inject 2.5 mg under the skin 1 (one) time per week. 2 mL 3 11/10/20 Active sertraline (Zoloft) 50 MG tablet Take 1 tablet (50 mg) by mouth Once per day. 30 tablet 3 11/10/20 25 Active losartan (Cozaar) 25 MG tablet Take 1 tablet (25 mg) by mouth Once per day. 90 tablet 3 11/10/20 25 Active sertraline (Zoloft) 25 MG tabletIndicati ons:Anxiety Take 1 tablet (25 mg) by mouth Once per day. 30 tablet 2 07/12/20 25 025 Discontinued pseudoephedrin e (Sudafed) 30 MG tablet Take 1 tablet (30 mg) by mouth every 6 (six) hours if needed for congestion for up to 10 days. 20 tablet 08/17/20 25 025 Discontinued( erapy completed) sertraline (Zoloft) 25 MG tabletIndicati ons:Anxiety TAKE 1 TABLET (25 MG) BY MOUTH ONCE PER DAY. 30 tablet 2 10/19/20 25 025 Discontinued(Do se adjustment) Active Problems Problem Noted Date Diagnosed Date Grief 07/09/2025 BMI 50.0-59.9, adult (CMS/HCC) 07/07/2025 Anxiety 07/07/2025 Fatty liver 07/03/2022 Overview [...] disease, she should be referred to the [facility], and I can monitor her liver enzymes 1- 2x/year and ultrasound annually. * referred to [facility] Weight Mgmt program 07/03/22 History of COVID-19 12/15/2021 Overview (07/07/2025): Started with symptoms 12/08/21- mild symptoms. Prediabetes 04/03/2021 Overview (07/07/2025): 03/31/21, hgb a1c = 6. -> referred to endo 06/28/21, hgb a1c = 6.1 -> referred again to endo as never seen * referred to [facility] Mgmt program 07/03/22 PCOS (polycystic ovarian syndrome) 12/09/2020 Overview (07/07/2025): No hirsutism. Does have some acne. Labs c/w PCOS (elevated free testosterone). Nl 17-OH-P. OCPs started 06/12. Seen by 12/09/[address] Chance, OB-Shoe Maker, agree with COCs. Vitamin D deficiency 09/23/2020 [...] chronic 03/21/2020 Overview (07/07/2025): Diagnosed 03/16/20 by [facility], Dr. Zoey Mariano, and seen ~10x, last visit 07/11/20. Chronic migraine 02/17/2010 Overview (07/07/2025): Since 5yo. Per mom, MRI normal in past. Has used cyproheptadine in the past, but gained weight. Gets 3-4x/week. Sleeps them off. [facility] (Dr. Jhonny Oshea) 05/14/19- started sumatriptan 25mg prn, f/u 3 mos. 01/16- worsening migraines after Covid 12/16, sumatriptan re-started, MigRelief started and improved on this. Encounters * This document contains information received from the source organization and may not represent a complete record from that organization. Date Type Department Care Team Description 11/10/2025 2:00 PM EST Office Visit [facility] [place] [address] Renetta Matos DO Bilateral foot pain (Primary Dx); Encounter for immunization; Chronic pain of left ankle; Prediabetes; Fatty liver 11/10/2025 Travel 11/08/2025 Telephone [facility] [place] [address] Renetta Matos DO Chart Prep 10/28/2025 Telephone [facility] [place] [address] Renetta Matos DO Call Back Request 10/28/2025 Telephone [facility] [place] [address] Renetta Matos DO Recall Appointment 10/28/2025 Travel 10/19/2025 Refill [facility] [place] [address] Renetta Matos DO Anxiety 09/22/2025 Telephone [facility] [place] [address] Renetta Matos DO Referral 09/10/2025 Refill [facility] [place] [address] Renetta Matos DO 08/17/2025 10:00 AM EDT Office Visit [facility] [place] [address] Renetta Matos DO Acute URI (Primary Dx); Sore throat; Major depression, recurrent, chronic (CMS/HCC); Snoring; Sleep-disordered breathing; Elevated BP without diagnosis of hypertension 08/17/[address] [facility] [address] [place] [address] Renetta Matos DO 08/17/2025 Travel 08/16/[address] [facility] [address] [place] [address] Renetta Matos DO Chart Prep 08/15/2025 Travel from Last 3 Months Immunizations Immunization Administration [...] IIV3, injectable 08/23/2021,1 ,09/23/2015,09/10,09/04/2005,10/06/2004 Influenza, Split (incl. cynede fied surface antigen) 09/30/2012,08/10/2010 Influenza, seasonal, injecta ble, preservative free 11/10/2025 MMR 05/15/2006,04/05/2003 Meningococcal ACWY, unspecified 04/06/2019 Meningococcal B, Recombinant 09/19/2020,04/06/20 19 Meningococcal MCV4P ACYW-135 04/06/2019,08/10/20 14 PPD Test 12/27/2020 Pfizer Covid-19 Vaccine 12+ 11/10/2025 Pneumococcal Conjugate PCV 7 07/15/2003, 2002,2002,06/04 Rabies [...] is your housing situation today? I have aranldo bradley 06/30/[address] you [...] 20 11/10/2025 2:12 PM EST Oxygen Saturation 97% 08/17/2025 9:54 AM EDT Inhaled Oxygen Concentration - - Weight 140 kg (308 lb) 11/10/2025 2:12 PM EST Height 149.9 cm (4' 11 ) 11/10/2025 2:12 PM EST Body Mass Index 62.21 11/10/2025 2:12 PM EST Plan of Treatment Health Maintenance Due Date Last Done Comments Family Planning (PISQ) 2017 Pap Smear 2023 Chlamydia and Gonorrhea Screening 06/28/2023 06/28/2022, 04/06/2019 Depression Monitoring 05/11/2026 11/10/2025, 025 SDOH Screening 06/30/2026 06/30/2025 Disability Screening [...] Completed 07/22/2025 Hepatitis C Screening Completed 07/22/2025 COVID-19 Vaccine Completed 11/10/2025, , 04/20/2021 Influenza Vaccine Completed 11/10/2025, , 08/23/2021, Additional history exists RSV under 20 months [...] 11/10/2025 3:24 PM EST Bilateral foot pain POC CROCKETT ID NOW STREP A Routine 08/17/2025 10:53 AM EDT Sore throat CULTURE, THROAT Routine 08/17/2025 10:49 AM EDT POCT INFLUENZA A Routine 08/17/2025 10:2 3 AM EDT Acute URI POCT INFLUENZA B Routine 08/17/2025 10:2 3 AM EDT Acute URI HEPATITIS C AB W/REFL TO HCV RNA, [...] counseling Exercise counseling from Last 3 Months or Most Recently Relevant to Health Maintenance Results * XR Foot 3+ Views Right (11/10/2025 3:27 PM EST) Anatomical Region Laterality Modality Lower Extremities, Foot Right [facility] 11/10/2025 3:27 PM EST Narrative 11/10/2025 3:45 PM EST [address] [address] XRay Report Signed Patient: Vinod Alarcon MR#: [id number] : 2000 Acct:[id number] Age/Sex: 25 / F ADM Date: 11/10/25 Loc: .HHCX Attending Dr: Renetta Matos DO Ordering Physician: Renetta Matos DO Date of Service: 11/10/25 Procedure(s): XR foot RT min 3V Accession Number(s): [id number] cc: Renetta Matos DO Reason for Exam: [...] by: Aaron Benjamin MD 11/10/2025 03:43 PM [facility] Dictated By: Aaron Benjamin MD Signed By: <Electronically signed by Aaron Benjamin MD in OV> 11/10/25 1543 DD/ 1527 TD/TT: 11/10/25 1530 Ground Systems Engineer: Procedure Note Donotuseinterpreter, Image - 11/10/[address] [address] XRay Report Signed Patient: Vinod Alarcon MR#: [id number] : 2000Acct:[id number] Age/Sex: 25 / FADM Date: 11/10/25 Loc: .HHCX Attending Dr: Renetta Matos DO Ordering Physician: Renetta Matos DO Date of Service: 11/10/25 Procedure(s): XR foot RT min 3V Accession Number(s): [id number] cc: Renetta Matos DO Reason for Exam: [...] 11/10/25 1543 DD/ 1527 TD/TT: 11/10/25 1530 Ground Systems Engineer: Renetta Matos DO IMG XR PROCEDURES Final Resu lt * XR Ankle 3+ Views Left (11/10/2025 3:25 PM EST) Anatomical Region Laterality Modality Lower Extremities, Ankle Left Radiogr [facility] 11/10/2025 3:25 PM EST Narrative 11/10/2025 3:46 [place] [address] XRay Report Signed Patient: Vinod Alarcon MR#: [id number] : 2000 Acct:[id number] Age/Sex: 25 / F ADM Date: 11/10/25 Loc: HO.HHCX Attending Dr: Renetta Matos DO Ordering Physician: Renetta Matos DO Date of Service: 11/10/25 Procedure(s): XR ankle LT min 3V Accession Number(s): [id number] cc: Renetta Matos DO Reason for Exam: [...] David Coto MD 11/10/2025 03:43 PM EST RP Dictated By: Juan David Coto MD Signed By: <Electronically signed by Juan David Coto MD in OV> 11/10/25 1543 DD/ 1525 TD/TT: 11/10/25 1530 Ground Systems Engineer: Procedure Note Corina, Image - 11/10/[address] [address] XRay Report Signed Patient: Vinod Alarcon MR#: [id number] : 2000Acct:[id number] Age/Sex: 25 M Date: 11/10/25 Loc: .HHCX Attending Dr: Renetta Matos DO Ordering Physician: Renetta Matos DO Date of Service: 11/10/25 Procedure(s): XR ankle LT min 3V Accession Number(s): [id number] cc: Renetta Matos DO Reason for Exam: [...] 11/10/25 1543 DD/ 1525 TD/TT: 11/10/25 1530 Ground Systems Engineer: Renetta Matos DO IMG XR PROCEDURES Final Resu lt * XR Foot 3+ Views Left (11/10/2025 3:24 PM EST) Anatomical Region Laterality Modality Lower Extremities, Foot Left Radiogra phic Imaging 11/10/2025 3:24 PM EST Narrative 11/10/2025 3:47 PM EST [address] [address] XRay Report Signed Patient: Vinod Alarcon MR#: [id number] : 2000 Acct:[id number] Age/Sex: 25 / F ADM Date: 11/10/25 Loc: PETE Attending Dr: Renetta Matos DO Ordering Physician: Renetta Maots DO Date of Service: 11/10/25 Procedure(s): XR foot LT min 3V Accession Number(s): [id number] cc: Renetta Matos DO Reason for Exam: [...] David Coto MD 11/10/2025 03:44 PM EST Dictated By: Juan David Coto MD Signed By: <Electronically signed by Juan David Coto MD in OV> 11/10/25 1544 DD/ 1524 TD/TT: 11/10/25 1530 Ground Systems Engineer: Procedure Note Donotuseinterpreter, Image - 11/10/[address] [address] XRay Report Signed Patient: Vniod Alarcon MR#: [id number] : 2000Acct:[id number] Age/Sex: 25 / FADM Date: 11/10/25 Loc: PATELCX Attending Dr: Renetta Matos DO Ordering Physician: Renetta Matos DO Date of Service: 11/10/25 Procedure(s): XR foot LT min 3V Accession Number(s): [id number] cc: Renetta Matos DO Reason for Exam: [...] David Coto MD 11/10/2025 03:44 PM EST Dictated By: Juan David Coto MD Signed By: <Electronically signed by Juan David Coto MD in OV> 11/10/25 1544 DD/ 1524 TD/TT: 11/10/25 1530 Ground Systems Engineer: Renetta Matos DO IMG XR PROCEDURES Final Resu lt * POCT Rapid Strep A CROCKETT ID NOW (08/17/2025 10:53 AM EDT) Rapid Strep A Screen Negative Negative, None Detected Swab 08/17/2025 10:5 3 AM EDT Renetta Matos DO POINT OF CARE TEST ENTER/TOMER T ORDERABLES Final Result * Culture, Throat (08/17/2025 10:49 AM EDT) Throat Structure of anterior region of neck / Unknown 08/17/2025 10:49 AM EDT 08/17/2025 5:26 PM EDT Comment:Throat Narrative [facility] - 08/19/2025 12:19 PM EDT Streptococcus pyogenes (Grp A) Quant Org ID 3+ Specimen Source: Throat Renetta Matos DO LAB MICROBIOLOGY - GENERAL O RDERABLES Final Result [facility] [address] [place] [address] [phone] * POCT Rapid Influenza B OSOM (08/17/2025 10:23 AM EDT) Pathologist [facility] Rapid Influenza B Ag Negative Negative, Indeterminate Swab 08/17/2025 10:2 3 AM EDT Renetta Matos DO POINT OF CARE TEST ENTER/TOMER T ORDERABLES Final Result * POCT Rapid Influenza A OSOM (08/17/2025 10:23 AM EDT) [facility] Rapid Influenza A Ag Negative Negative, Indeterminate Swab Nasopharyngeal structure / Unknown 08/17/2025 10:23 AM EDT Renetta Matos DO POINT OF CARE TEST ENTER/TOMER T ORDERABLES Final Result * Hepatitis C Antibody with Reflex to HCV, RNA, Quantitative, Real-Time PCR (07/22/2025 9:28 AM EDT) [facility] Hepatitis C Antibody Nonreactive Nonreactive [facility] Comment:Antibodies to HCV no t detected; does not exclude early acuteHCV infection. Blood Venous blood specimen / Unknown 07/22/2025 9:28 AM EDT 07/22/2025 2:41 PM EDT Renetta Matos DO LAB BLOOD ORDERABLES Final R esult [facility] [address] [place] [address] [phone] * HIV-1/2 Antigen and Antibodies, Fourth Generation, with Reflexes (07/22/2025 9:28 AM EDT) [facility] HIV AB/AG Nonreactive Nonreactive [facility] Comment:HIV-1 p24 Ag and/or HIV-1/HIV-2 Ab not detected.A test result that is nonreactive does not exclude thepossibility of exposure to or infection with HIV-1 and/orHIV-2. Nonreactive results in this assay for individualswith prior exposure to HIV-1 and/or HIV-2 may be due toantigen and antibody levels that are below the limit ofdetection of this assay.The [id number] HIV Ag/Ab Combo assay result andsupplemental assay results should be interpreted inconjunction with the patient's clinical presentation,history and other laboratory results. If the results areinconsistent with clinical evidence, additional testing issuggested to confirm the result. Blood Venous blood specimen / Unknown 07/22/2025 9:28 AM EDT 07/22/2025 2:41 PM EDT Renetta Matos LAB BLOOD ORDERABLES Final R esult Performing Organization Address City/[facility]/ZIP Co de Phone Number [facility] [address] [place] [phone] * (ABNORMAL) Hemoglobin A1c (07/22/2025 9:28 AM EDT) Hemoglobin A1c 6.3(H) <6.0 % [facility] Comment:Hemoglobin A1C Refer ence Range Adults: 4.8 - 6.0 % Non diabetic: < 6.0 % Goal: < 7.0 %Additional Action Suggested: > 8.0 %Note: Hemoglobin A1c results are invalid for patients with abnormal amounts of HbF. Blood transfusions may impact the HbA1c concentration in the patient sample. Estimated Average Glucose 134 mg/dL [facility] Comment:eAG = Estimated ave rage glucose which is %A1C expressed asaverage glucose, using the formula of the [id number] Glucose study (ADAG), Diabetes Care, Vol.31,#8,Jun. 2007 Blood Venous blood specimen / Unknown 07/22/2025 9:28 AM EDT 07/22/2025 2:41 PM EDT Renetta Matos [employer] LAB BLOOD ORDERABLES Final R esult [facility] [address] [place] [phone] [phone] * (ABNORMAL) Lipid Panel, Standard (07/22/2025 9:28 AM EDT) Triglycerides 94 <150 mg/dL [facility] Comment:Desirable Triglyceri de: less than 150 mg/dLBorderline High Triglyceride 150-199 mg/dLHigh Triglyceride: 200-499 mg/dLVery High Triglyceride: greater than or equal to 5OO mg/dL Cholesterol 163 <200 mg/dL [facility] Comment:Desirable Cholestero l: less than 200 mg/dLBorderline High Cholesterol: 200-239 mg/dLHigh Cholesterol: greater than 239 mg/dL LDL Cholesterol Calculated 100(H) <100 mg/dL [facility] Comment:Desirable LDL: less than 100 mg/dLNear Optimal/Above Optimal LDL: 110- 129 mg/dLBorderline High LDL: 130-159 mg/dLHigh LDL: 160-189 mg/dLVery High LDL: greater than or equal to 190 mg/dL HDL Cholesterol 45 >40 mg/dL [facility] Comment:Desirable HDL: great er than 40 mg/dL Note: This HDL assay may give artificially low results in patients with liver disease. Blood Venous blood specimen / Unknown 07/22/2025 9:28 AM EDT 07/22/2025 2:41 PM EDT us Renetta Matos DO LAB BLOOD ORDERABLES Final R esult [facility] [address] [place] [address] [phone] from Last 3 Months or Most Recently Relevant to Health Maintenance Insurance [facility] [place] [id number] Care Teams Mechanical Engineering Lecturer Relationship Specialty Start Date End Date Renetta Matos DO [address] [place] [address] PCP - General Family Medicine 07/12/25
--- OUTSIDE RECORDS SUMMARY | 2025-11-10 19:53 | XMS_ITS | Encounter Summary ---
Author Organization [facility] Address [address] [place] [address] Phone Care Team Providers Care Store Warehouse Associate Name Role Phone Hannah Griffith MD Primary Care Provider [phone] Reason for Visit * Reason Comments Med Refill Encounter Details Date Type Department Care Team (Late st Contact Info) Description 12/25/2020 Refill [facility] [address] [place] [address] Hannah Griffith MD [address] [place] [address] Anxiety and depression; Moderate episode of recurrent [...] disorder documented in this encounter Care Teams Store Warehouse Associate Relationship Specialty Start Date End Date Hannah Griffith MD [address] [place] [address] PCP - General Pediatrics 04/06/19 05/14/23 documented as of this encounter
--- OUTSIDE RECORDS SUMMARY | 2025-11-10 19:53 | XMS_ITS | Encounter Summary ---
Author Organization [facility] Address [address] [place] [phone] Phone Care Team Providers Care Film Printer Name Role Phone Hannah Griffith MD Primary Care Provider [phone] Encounter Details Date Type Department Care Team (Late st Contact Info) Description 07/11/2017 Conversion Encounter [facility] [address] [place] [address] Social History Tobacco Use Types Packs/Day Years [...] on filedocumented in this encounter Care Teams Film Printer Relationship Specialty Start Date End Date Hannah Griffith MD [address] [place] [address] PCP - General Pediatrics 04/06/19 05/14/23 documented as of this encounter
--- OUTSIDE RECORDS SUMMARY | 2025-11-10 19:53 | XMS_ITS | Clinical Summary ---
Author Organization [facility] Address [address] [place] [phone] Phone Care Team Providers Care Spa Associate Name Role Phone Jaleesa Ghosh MD Primary [...] on file Sexual Orientation Not on file Last Filed Vital Signs Vital Sign Reading [...] patient's age to complete this topic Insurance [employer] Care Teams Spa Associate Relationship Specialty Start Date End Date Jaleesa Ghosh MD PCP - General 08/14/23
== END 2025-11-10 14:56 | disposition home or self-care (01) ==
LOC: HO.HHCX 14:55
PROVIDERS: PCP Family Medicine; Visit Provider Family Medicine
DX: G89.29 Other chronic pain (principal); M79.671 Pain in right foot; M79.672 Pain in left foot; M25.572 Pain in left ankle and joints of left foot
CPT/HCPCS: 73610; 73630

== ENCOUNTER → 2025-11-10 15:27 | Outpatient (BNV) | payer OTHER, SELFPAY | PROVIDERS: PCP Family Medicine; Visit Provider Radiology Diagnostic Radiology | DX: M77.32 Calcaneal spur, left foot (principal); M77.31 Calcaneal spur, right foot; M79.672 Pain in left foot; R25.2 Cramp and spasm | CPT/HCPCS: 73610; 73630 ==

== ENCOUNTER → 2025-11-17 10:52 | Outpatient (REF) | payer OTHER, SELFPAY ==
--- OUTSIDE RECORDS SUMMARY | 2025-11-17 10:59 | XMS_ITS | Clinical Summary ---
Author Organization [employer] Address [address] [facility] 7[address] [place] [address] Care Team Providers Care Manager Data Warehousing Name Role Phone Renetta Matos DO Primary Care Provider [phone] Allergies No known active allergies Medications * [...] each 08/17/20 25 026 Active sodium chloride ([place] Nasal [place]) 0.65 % nasal spray Administer 2 sprays [...] disease, she should be referred to the [facility] Management Program, and I can monitor her liver enzymes 1- 2x/year and ultrasound annually. * referred to [facility] Weight Mgmt program 07/03/22 History of COVID-19 12/15/2021 Overview (07/07/2025): Started with symptoms 12/08/21- mild symptoms. Prediabetes 04/03/2021 Overview (07/07/2025): 03/31/21, hgb a1c = 6. -> referred to endo 06/28/21, hgb a1c = 6.1 -> referred again to endo as never seen * referred to [facility] Weight Mgmt program 07/03/22 PCOS (polycystic ovarian syndrome) 12/09/2020 Overview (07/07/2025): No hirsutism. Does have some acne. Labs c/w PCOS (elevated free testosterone). Nl 17-OH-P. OCPs started 06/12. Seen by 12/09/[address] Chance, OB-Graphics Artist, agree with COCs. Vitamin D deficiency 09/23/2020 [...] chronic 03/21/2020 Overview (07/07/2025): Diagnosed 03/16/20 [facility], Dr. Zoey aMriano, and seen ~10x, last visit 07/11/20. Chronic migraine 02/17/2010 Overview (07/07/2025): Since 5yo. Per mom, MRI normal in past. Has used cyproheptadine in the past, but gained weight. Gets 3-4x/week. Sleeps them off. [facility] Neuro (Dr. Jhonny Oshea) 05/14/19- started sumatriptan 25mg prn, f/u 3 mos. 01/16- worsening migraines after Covid 12/16, sumatriptan re-started, MigRelief started and improved on this. Encounters Date Type Department Care Team Description 11/10/2025 2:00 PM EST Office Visit [facility] [place] [address] Renetta Matos DO Bilateral foot pain (Primary Dx); Encounter for immunization; Chronic pain of left ankle; Prediabetes; Fatty liver 11/10/2025 Travel 11/08/2025 Telephone [facility] [place] [address] Renetta Matos DO Chart Prep 10/28/2025 Telephone [facility] [place] [place] [address] Renetta Matos DO Call Back Request 10/28/2025 Telephone [facility] [place] [address] Renetta Matos DO Recall Appointment 10/28/2025 Travel 10/19/2025 Refill [facility] [place] [address] Renetta Matos DO Anxiety 09/22/[address] [place] [address] Renetta Matos DO Referral 09/10/2025 Refill [facility] [place] [address] Renetta Matos DO from Last 3 Months Immunizations Immunization Administration [...] Split (incl. cyndee fied surface antigen) 09/30/2012,08/10/2010 Influenza, seasonal, injecta ble, preservative free 11/10/2025 MMR 05/15/2006,04/05/2003 Meningococcal ACWY, unspecified 04/06/2019 Meningococcal B, Recombinant 09/19/2020,04/06/20 19 Meningococcal MCV4P ACYW-135 04/06/2019,08/10/20 14 PPD Test 12/27/2020 [employer] Covid-19 Vaccine 12+ 11/10/2025 Pneumococcal Conjugate PCV [...] 11/10/2025 3:24 PM EST Bilateral foot pain HEPATITIS C AB W/REFL TO HCV RNA, [...] Laterality Modality Lower Extremities, Foot Right Radiogra phic Imaging 11/10/2025 3:27 PM EST Narrative 11/10/2025 3:45 PM EST [address] [address] XRay Report Signed Patient: Vinod Alarcon MR#: [id number] : 2000 Acct:[id number] Age/Sex: 25 / F ADM Date: 11/10/25 Loc: .HHCX Attending Dr: Renetta Matos DO Ordering Physician: Renetta Matos DO Date of Service: 11/10/25 Procedure(s): XR foot RT min 3V Accession Number(s): [id number] cc: Renetta Matos DO Reason for Exam: [...] Aaron Benjamin MD 11/10/2025 03:43 PM EST Dictated By: Aaron Benjamin MD Signed By: <Electronically signed by Aaron Benjamin MD in OV> 11/10/25 1543 DD/ 1527 TD/TT: 11/10/25 1530 Recreation Adviser: Procedure Note Donotuseinterpreter, Image - 11/10/[address] [address] XRay Report Signed Patient: Vinod Alarcon MR#: [id number] : 2000Acct:[id number] Age/Sex: 25 / FADM Date: 11/10/25 Loc: PETE Attending Dr: Renetta Matos DO Ordering Physician: Renetta Matos DO Date of Service: 11/10/25 Procedure(s): XR foot RT min 3V Accession Number(s): [id number] cc: Renetta aMtos DO Reason for Exam: PAIN EXAMINATION: XR [...] Aaron Benjamin MD 11/10/2025 03:43 PM EST Dictated By: Aaron Benjamin MD Signed By: <Electronically signed by Aaron Benjamin MD in OV> 11/10/25 1543 DD/ 1527 TD/TT: 11/10/25 1530 Recreation Adviser: Renetta Matos DO IMG XR PROCEDURES Final Resu lt * XR Ankle 3+ Views Left (11/10/2025 3:25 PM EST) Anatomical Region Laterality Modality Lower Extremities, Ankle Left Radiogr aphic Imaging 11/10/2025 3:25 PM EST Narrative 11/10/2025 3:46 PM EST [address] [address] XRay Report Signed Patient: Vinod Alarcon MR#: [id number] : 2000 Acct:[id number] Age/Sex: 25 / F ADM Date: 11/10/25 Loc: PATELCX Attending Dr: Renetta Matos DO Ordering Physician: Renetta Matos DO Date of Service: 11/10/25 Procedure(s): XR ankle LT min 3V Accession Number(s): [id number] cc: Renetta Matos DO Reason for Exam: [...] Juan David Coto MD 11/10/2025 03:43 PM [facility] Dictated By: Juan David Coto MD Signed By: <Electronically signed by Juan David Coto MD in OV> 11/10/25 1543 DD/ 1525 TD/TT: 11/10/25 1530 Recreation Adviser: Procedure Note Donotuseinterpreter, Image - 11/10/[address] [address] XRay Report Signed Patient: Vinod Alarcon MR#: [id number] : 2000Acct:[id number] Age/Sex: 25 / FADM Date: 11/10/25 Loc: .HHCX Attending Dr: Renetta Matos DO Ordering Physician: Renetta Matos DO Date of Service: 11/10/25 Procedure(s): XR ankle LT min 3V Accession Number(s): [id number] cc: Renetta Matos DO Reason for Exam: [...] 11/10/25 1543 DD/ 1525 TD/TT: 11/10/25 1530 Recreation Adviser: Renetta Matos DO IMG XR PROCEDURES Final Resu lt * XR Foot 3+ Views Left (11/10/2025 3:24 PM EST) Anatomical Region Laterality Modality Lower Extremities, Foot Left Radiogra phic Imaging 11/10/2025 3:24 PM EST Narrative 11/10/2025 3:47 [place] [address] XRay Report Signed Patient: Vinod Alarcon MR#: [id number] : 2000 Acct:[id number] Age/Sex: 25 / F ADM Date: 11/10/25 Loc: HO.HHCX Attending Dr: Renetta Matos DO Ordering Physician: Renetta Matos DO Date of Service: 11/10/25 Procedure(s): XR foot LT min 3V Accession Number(s): [id number] cc: Renetta Matos DO Reason for Exam: [...] 11/10/25 1544 DD/ 1524 TD/TT: 11/10/25 1530 Recreation Adviser: Procedure Note Donotcourtneyinterpreter, Image - 11/10/[address] [address] XRay Report Signed Patient: Vinod Alarcon MR#: [id number] : 2000Acct:[id number] Age/Sex: 25 FADM Date: 11/10/25 Loc: HO.HHCX Attending Dr: Renetta Matos DO Ordering Physician: Renetta Matos DO Date of Service: 11/10/25 Procedure(s): XR foot LT min 3V Accession Number(s): [id number] cc: Renetta Matos DO Reason for Exam: [...] Juan David Coto MD 11/10/2025 03:44 PM [facility] Dictated By: Juan David Coto MD Signed By: <Electronically signed by Juan David Coto MD in OV> 11/10/25 1544 DD/ 1524 TD/TT: 11/10/25 1530 Recreation Adviser: Renetta Matos DO IMG XR PROCEDURES Final Resu lt * Hepatitis C Antibody with Reflex to HCV, RNA, Quantitative, Real-Time PCR (07/22/2025 9:28 AM EDT) Hepatitis C Antibody Nonreactive Nonreactive [facility] Comment:Antibodies to HCV no t detected; does not exclude early acuteHCV infection. Blood Venous blood specimen / Unknown 07/22/2025 9:28 AM EDT 07/22/2025 2:41 PM EDT Renetta Shawna LAB BLOOD ORDERABLES Final R esult Performing Organization Address [facility]/ZIP Co de Phone Number [facility] [address] [place] [phone] * HIV-1/2 Antigen and Antibodies, Fourth Generation, with Reflexes (07/22/2025 9:28 AM EDT) HIV AB/AG Nonreactive Nonreactive [facility] Comment:HIV-1 p24 Ag and/or HIV-1/HIV-2 Ab not detected.A test result that is nonreactive does not exclude thepossibility of exposure to or infection with HIV-1 and/orHIV-2. Nonreactive results in this assay for individualswith prior exposure to HIV-1 and/or HIV-2 may be due toantigen and antibody levels that are below the limit ofdetection of this assay.The RecordSetter HIV Ag/Ab Combo assay result andsupplemental assay results should be interpreted inconjunction with the patient's clinical presentation,history and other laboratory results. If the results areinconsistent with clinical evidence, additional testing issuggested to confirm the result. Blood Venous blood specimen / Unknown 07/22/2025 9:28 AM EDT 07/22/2025 2:41 PM EDT us Renetta Matos DO LAB BLOOD ORDERABLES Final R esult Performing Organization Address City/[facility]/ZIP Co de Phone Number [facility] [address] [place] [phone] * (ABNORMAL) Hemoglobin A1c (07/22/2025 9:28 AM EDT) Hemoglobin A1c 6.3(H) <6.0 % [facility] Comment:Hemoglobin A1C Refer ence Range Adults: 4.8 - 6.0 % Non diabetic: < 6.0 % Goal: < 7.0 %Additional Action Suggested: > 8.0 %Note: Hemoglobin A1c results are invalid for patients with abnormal amounts of HbF. Blood transfusions may impact the HbA1c concentration in the patient sample. Estimated Average Glucose 134 mg/dL [facility] Comment:eAG = Estimated ave rage glucose which is %A1C expressed asaverage glucose, using the formula of the H0N-PhtdjutSaouxrb Glucose study (ADAG), Diabetes Care, Vol.31,#8,Jun. 2007 Blood Venous blood specimen / Unknown 07/22/2025 9:28 AM EDT 07/22/2025 2:41 PM EDT us Renetta Matos DO LAB BLOOD ORDERABLES Final R esult [facility] [address] [place] [phone] * (ABNORMAL) Lipid Panel, Standard (07/22/2025 9:28 AM EDT) Triglycerides 94 <150 mg/dL [facility] Comment:Desirable Triglyceri de: less than 150 mg/dLBorderline High Triglyceride 150-199 mg/dLHigh Triglyceride: 200-499 mg/dLVery High Triglyceride: greater than or equal to 5OO mg/dL Cholesterol 163 <200 mg/dL [facility] Comment:Desirable Cholestero l: less than 200 mg/dLBorderline High Cholesterol: 200-239 mg/dLHigh Cholesterol: greater than 239 mg/dL LDL Cholesterol Calculated 100(H) <100 mg/dL [facility] Comment:Desirable LDL: less than 100 mg/dLNear Optimal/Above Optimal LDL: 110- 129 mg/dLBorderline High LDL: 130-159 mg/dLHigh LDL: 160-189 mg/dLVery High LDL: greater than or equal to 190 mg/dL HDL Cholesterol 45 >40 mg/dL [facility] Comment:Desirable HDL: great er than 40 mg/dL Note: This HDL assay may give artificially low results in patients with liver disease. Blood Venous blood specimen / Unknown 07/22/2025 9:28 AM EDT 07/22/2025 2:41 PM EDT Renetta Matos DO LAB BLOOD ORDERABLES Final R esult [facility] [address] [place] [phone] from Last 3 Months or Most Recently Relevant to Health Maintenance Insurance [facility] [place] [id number] Care Teams Manager Data Warehousing Relationship Specialty Start Date End Date Renetta Matos DO [address] [place] [phone] PCP - General Family Medicine 07/12/25
--- OUTSIDE RECORDS SUMMARY | 2025-11-17 10:59 | XMS_ITS | Clinical Summary ---
Author Organization [facility] Address [address] [place] [phone] Phone Care Team Providers Care Executive Meeting Manager Name Role Phone Jaleesa Ghosh MD Primary [...] complete this topic Insurance [employer] [place] [address] Care Teams Executive Meeting Manager Relationship Specialty Start Date End Date Jaleesa Ghosh MD PCP - General 08/14/23
--- OUTSIDE RECORDS SUMMARY | 2025-11-17 10:59 | XMS_ITS | Encounter Summary ---
Author Organization [employer] Address [address] [facility] 7[address] [place] [address] Care Team Providers Care Mr Teacher Name Role Phone Renetta Matos DO Primary Care Provider [phone] Reason for Visit * Reason Onset Date Comments Referral 09/22/2025 Encounter Details Date Type Department Care Team (Late st Contact Info) Description 09/22/2025 Telephone [facility] [address] [place], [place] [phone] Renetta Matos DO [address] [place], [place] [phone] Referral Social History Tobacco Use Types Packs/Day [...] t he electric, gas, oil or water [employer] threatened to shut off services in your [...] now requesting the referral. Contact pt at [phone] documented in this encounter Plan of Treatment Not on file documented as of this encounter Visit Diagnoses Not on filedocumented in this encounter Additional Health Concerns Assessment Noted Time PHQ-9 Depression Total Score: 21 025 10:01 AM EDT documented as of this encounter Care Teams Mr Teacher Relationship Specialty Start Date End Date Renetta Matos DO [address] [place] [phone] PCP - General Family Medicine 07/12/25 documented as of this encounter
--- OUTSIDE RECORDS SUMMARY | 2025-11-17 10:59 | XMS_ITS | Clinical Summary ---
Author Organization [facility] Address [address] [place] [address] Phone Care Team Providers Care Outdoor Adventure Leader Name Role Phone Unavailable Primary Care Provider [...] disease, she should be referred to the [facility] Management Program, and I can [...] endo as never seen * referred to [facility] Weight Mgmt program 07/03/22 Assessment & [...] 06/12. Seen by 12/09/[address] Chance, OB-Director Of Direct Marketing, agree with COCs. Assessment & Plan (06/28/2022 [...] 04/06/2019 Overview (06/13/2021): Seen by co-located [facility] therapist, Mavis, 05/13- lots of trauma. Seen again by [facility], Dr. Zoey Mariano, 03/14 for depressive [...] but she is aware she can call [facility] at any point if she'd like. [...] back with DIVYA Carballo, but I discussed local intermodal truck driver therapy today and Community resource list given [...] Assessment & Plan (11/28/2020 4:31 PM EST): aL is happy with the sertraline at the [...] access to guns. Referral to in-house [facility] therapist. F/u with me in ~1-2 month [...] with OCPs for contraception. Has appt with electronic controls repairer supervisor per mom's recs, planned for 12/15. I discussed contraception with her today (discussed options), and that she should discuss this with her new electronic controls repairer supervisor. Periods are regular, monthly, not too heavy. [...] Started seeing Dr. Philip, antoine surgery @ [facility] 07/05/22 re possible bariatric surgery. * referred to [facility] program 07/03/22 Assessment & Plan (06/28/2022 12:54 PM EDT): Rapid weight gain despite better diet and exercise. Will check labs today and also re-refer to endo as she never went when referred a year ago. Assessment & Plan (12/15/2021 2:46 PM EST): Because of high risk, called [facility] monoclonal antibody center, is eligible for treatment. Called back patient, not available, so called mother and discussed. Patient is sleeping. Mom will let her know. They will contact patient for infusion. Assessment & Plan (10/06/2021 8:48 AM EST): She reports eating healthier, getting some exercise (though not daily). She is taking a nutrition class at [facility], which may help in terms of [...] gained weight. Gets 3-4x/week. Sleeps them off. [facility] Neuro (Dr. Jhonny Oshea) 05/14/19- started [...] AM EDT): See me for a consult. [facility], [facility] [phone] [place] [phone] Date: HYPNOTHERAPY IN PEDIATRICS What is Hypnotherapy? Hypnosis is a state of increased focus in which a person experiences increased susceptibility to suggestion through hypnosis comes from the Maori word for sleep . A person is [...] hypnotherapist is like a teacher or a soccer coach, teaching a skill that a child [...] RMI, diaphragmatic breathing is suggested by the [place] [employer] and others, as a way [...] Pediatric dentists; the past president of the [place] [employer] Clinical [employer]nosis was a dentist. [...] ideally certification by an organization like the [place] [employer] for Clinical Hypnosis. How much time [...] and Edita Sanders, and a licensed clinical addiction social worker Aimee Rodriguez, as well as several articles I have written. ............Jona Torres MD [facility] Assessment & Plan (04/15/2020 2:18 PM EDT): [...] Seizure disorder, No family history of Sudden /AR under age 55, No family history of [...] Additional history exists Procedures * Due to [facility] law, this organization might not be sharing sensitive test results. Procedure Name Priority Date/Time Associated Diagnosis Comments CHLAMYDIA AND GONORRHEA, AMPLIFIED Routine 06/28/2022 12:15 PM EDT Encounter for screening examination for chlamydial infection from Last 3 Months or Most Recently Relevant to Health Maintenance Results * Due to [employer] law, this organization might not be sharing sensitive test results. * Chlamydia and Gonorrhoea, Amplified (Urine) (06/28/2022 12:15 PM EDT) Chlamydia Trachomatis, DNA Probe NEGATIVE (NEG) [facility] Comment: No Chlamydia Trachomatis RNA detected in this patient's sample (REFERENCE RANGE/NORMAL VALUE: NOT DETECTED) Note: This test uses housekeeping department worker- mediated amplification method to detect rRNA from C. Trachomatis URINE GC AMP PROBE NEGATIVE (NEG) [facility] Comment: No Neisseria Gonorrhoeae RNA detected in this patient's sample (REFERENCE RANGE/NORMAL VALUE: NOT DETECTED) NOTE: This test uses housekeeping department worker-mediated amplification method to detect rRNA from N.Gonorrhoeae. [...] without risk of sexual abuse. Consult the [facility] if needed. Contact phone number . Therapeutic failure or success cannot be determined with the Aptima Combo2 assay since nucleic acid may persist following appropriate antimicrobial therapy. The Centers for Disease Control and Prevention (CDC) recommends confirmatory retesting using culture or a different nucleic acid amplification test when positive results occur, if indicated. Testing performed or reported by [facility], a Service of [facility], [address], [place] [address] [place] Melo MD, Radiology Director [facility]# [id number] Urine (Urine, Random (not clean void)) 06/28/2022 12:15 PM EDT 06/28/2022 9:14 PM EDT Hannah Griffith MD LAB MICROBIOLOGY - GENERAL OR DERABLES Final Result [facility] from Last 3 Months or Most Recently Relevant to Health [place] [id number] [facility] [place] [id number] [facility] NON PCC
--- OUTSIDE RECORDS SUMMARY | 2025-11-17 10:59 | XMS_ITS | Encounter Summary ---
Author Organization [facility] Address [address] [place] [phone] Phone Care Team Providers Care Service Attendant Cafeteria Name Role Phone Hannah Griffith MD Primary Care Provider [phone] Encounter Details Date Type Department Care Team (Late st Contact Info) Description 07/11/2017 Conversion Encounter [facility] [address] [place] [address] Social History Tobacco Use Types Packs/Day Years [...] on filedocumented in this encounter Care Teams Service Attendant Cafeteria Relationship Specialty Start Date End Date Hannah Griffith MD [address] [place] [address] PCP - General Pediatrics 04/06/19 05/14/23 documented as of this encounter
--- OUTSIDE RECORDS SUMMARY | 2025-11-17 10:59 | XMS_ITS | Encounter Summary ---
Author Organization [facility] Address [address] [place] [address] Phone Care Team Providers Care Loan Closer Name Role Phone Hannah Griffith MD Primary Care Provider [phone] Reason for Visit * Reason Comments Med Refill Encounter Details Date Type Department Care Team (Late st Contact Info) Description 12/25/2020 Refill [facility] [address] [place] [address] Hannah Griffith MD [address] [place] [address] Anxiety and depression; Moderate episode of recurrent [...] disorder documented in this encounter Care Teams Loan Closer Relationship Specialty Start Date End Date Hannah Griffith MD [address] [place] [address] PCP - General Pediatrics 04/06/19 05/14/23 documented as of this encounter
== END ==
LOC: HO.SL 10:52
PROVIDERS: PCP Family Medicine; Visit Provider Family Medicine
DX: R06.83 Snoring (principal); G47.30 Sleep apnea, unspecified
CPT/HCPCS: 95806

== ENCOUNTER → 2025-11-17 21:00 | Outpatient (BNV) | payer OTHER, SELFPAY | PROVIDERS: PCP Family Medicine; Visit Provider Psychiatry & Neurology Neurology | DX: G47.33 Obstructive sleep apnea (adult) (pediatric) (principal) | CPT/HCPCS: 95806 ==